=== PATIENT | male | born 1980 | race Caucasian/White ===

== ENCOUNTER 2018-04-28 11:54 | Outpatient (CLI) | payer MEDICARE, MEDICAID, SELFPAY ==
[2018-04-28 13:05] LABS: VALPROIC ACID 78.6 ug/mL (50-100)
[2018-04-28 14:26] LABS: Abs Immature Grans 0.02 k/cumm (0.0-0.09); Absolute Basophil Count 0.02 k/cumm (0.0-0.2); Absolute Eosinophil Count 0.06 k/cumm (0.0-0.7); Absolute Lymphocyte Count 2.86 k/cumm (1.2-3.4); Absolute Monocyte Count 0.84 k/cumm (0.11-0.7); Absolute Neutrophil Count 6.19 k/cumm (1.2-6.7); Basophils % 0.2; Eosinophils % 0.6; HCT 43.9 % (40.0-50.0); HGB 14.8 g/dL (13.5-17.5); Immature Grans % 0.2; Lymphocytes % 28.6; Mean Corp. HGB Concentration 33.7 g/dL (32.0-36.0); Mean Corpuscular Hemoglobin 30.7 pg (27.0-33.0); Mean Corpuscular Volume 91.1 fL (80-95); Mean Platelet Volume 11.7 fL (8.0-11.0); Monocytes % 8.4; Platelet Count 260 x1000/uL (130-400); RBC 4.82 m/cumm (4.50-6.00); RBC Distribution Width 13.3 % (11.8-14.1); White Blood Cell Count 9.99 k/cumm (4.4-10.8)
[2018-04-28 16:50] LABS: ALT 16 U/L (12-78); AST 2 U/L (15-37); Albumin 3.6 g/dL (3.4-5.0); Alkaline Phosphatase 60 U/L (46-116); Anion Gap 10.3 mmol/L (3-11); BUN 14 mg/dL (7-18); Bilirubin, Total 0.3 mg/dL (0.2-1.0); CO2 28.7 mmol/L (21.0-32.0); CREATININE 0.81 mg/dL (0.70-1.30); Chloride 105 mmol/L (98-107); Cholesterol 146 mg/dL (50-200); Glucose 94 mg/dL (70-100); HDL Cholesterol 33 mg/dL (40-60); LDL CHOLESTEROL 92 mg/dL (<100); Potassium 4.5 mmol/L (3.5-5.1); Sodium 144 mmol/L (136-145); TSH (W/Ref FT4) 2.45 uIU/mL (0.358-3.74); Triglyceride 150 mg/dL (30-150)
[2018-04-28 19:33] LABS: Hemoglobin A1C 6.4 % (4.5-6.2)
[2018-04-29 13:37] LABS: Calcium 9.5 mg/dL (8.5-10.1)
== END 2018-04-28 12:14 ==
PROVIDERS: PCP Nurse Practitioner Family; Visit Provider Nurse Practitioner Psychiatric/Mental Health
DX: F31.9 Bipolar disorder, unspecified (principal); Z51.81 Encounter for therapeutic drug level monitoring; Z79.899 Other long term (current) drug therapy
CPT/HCPCS: 36415; 80053; 80061; 83721; 80164; 83036; 84443; 85025

== ENCOUNTER 2018-10-27 10:02 | Outpatient (CLI) | payer MEDICARE, MEDICAID, SELFPAY ==
[2018-10-27 10:53] LABS: VALPROIC ACID 53.7 ug/mL (50-100)
== END 2018-10-27 10:22 ==
PROVIDERS: PCP Nurse Practitioner Family; Visit Provider Nurse Practitioner Psychiatric/Mental Health
DX: F31.9 Bipolar disorder, unspecified (principal); Z51.81 Encounter for therapeutic drug level monitoring; Z79.899 Other long term (current) drug therapy
CPT/HCPCS: 36415; 80164

== ENCOUNTER 2019-05-31 09:11 | Outpatient (CLI) | payer MEDICARE, MEDICAID, SELFPAY ==
[2019-05-31 09:50] LABS: VALPROIC ACID 63.5 ug/mL (50-100)
[2019-05-31 10:20] LABS: COMMENT (LAB VIEW ONLY) 70.89 mg/dL; Microalb ug/mg Crea 139.5 ug/mg Cr
[2019-05-31 10:47] LABS: ALT 29 U/L (16-63); Albumin 3.9 g/dL (3.4-5.0); Alkaline Phosphatase 63 U/L (46-116); Anion Gap 8.2 mmol/L (3-11); BUN 12 mg/dL (7-18); Bilirubin, Total 0.2 mg/dL (0.2-1.0); CO2 32.8 mmol/L (21.0-32.0); Calcium 9.6 mg/dL (8.5-10.1); Calculated LDL 87 mg/dL; Chloride 102 mmol/L (98-107); Cholesterol 155 mg/dL (50-200); Glucose 128 mg/dL (70-100); HDL Cholesterol 37 mg/dL (40-60); Potassium 4.9 mmol/L (3.5-5.1); Sodium 143 mmol/L (136-145); TSH (W/Ref FT4) 2.83 uIU/mL (0.36-3.74); Total Protein 7.5 g/dL (6.4-8.2); Triglyceride 157 mg/dL (30-150)
[2019-05-31 10:49] LABS: AST < 5 U/L (15-37)
[2019-06-01 14:04] LABS: HIV-1/2 Ag & Ab Screen Negative (Negative)
== END 2019-05-31 09:31 ==
PROVIDERS: PCP Nurse Practitioner Family; Visit Provider Nurse Practitioner Psychiatric/Mental Health
DX: E03.9 Hypothyroidism, unspecified (principal); E78.5 Hyperlipidemia, unspecified; E11.9 Type 2 diabetes mellitus without complications; F31.9 Bipolar disorder, unspecified; Z51.81 Encounter for therapeutic drug level monitoring; Z11.4 Encounter for screening for human immunodeficiency virus [HIV]
CPT/HCPCS: 36415; 80053; 80061; 87389; 80164; 82043; 82570; 83036; 84443

== ENCOUNTER 2020-01-28 17:59 | Emergency (ER) | payer MEDICARE, MEDICAID, SELFPAY ==
[2020-01-28 18:03] VITALS: BP 153/80; PULSE 96; RESP 16; TEMP 36.7; O2SAT 94
--- NOTE | 2020-01-28 18:19 | W.ED.GENAD ---
Discharge Plan Disposition Patient Disposition: HOME Condition: Improving Discharge Details Chief Complaint: Abd Prob Clinical Impression: Abdominal pain, Nausea Primary Care Provider: Anai Bearden ED Provider: Chey Sun Home Meds and New Rx's Prescriptions: New ondansetron 4 mg tablet,disintegrating 4 mg PO TID PRN (Reason: nausea and vomiting) Qty: 6 RF: 0 Continued albuterol sulfate [ProAir HFA] 90 mcg/actuation HFA aerosol inhaler 1 - 2 inh Inhalation .Q4-6H PRN (Reason: shortness of breath or wheezing) Qty: 1 RF: 0 cyclobenzaprine 5 mg tablet 5 - 10 mg PO TID PRN (Reason: muscle spasm) Qty: 20 RF: 0 bupropion HCl 200 MG tablet extended release 12 hr 200 mg PO DAILY RF: 0 loratadine 10 MG tablet 10 mg PO DAILY PRNQty: 30 RF: 3 albuterol sulfate 2.5 MG/3 ML solution for nebulization 2.5 mg Inhalation QID PRN RF: 0 (DME) blood-glucose meter 1 EACH misc 1 ea Miscellaneous DAILY Qty: 1 RF: 0 (DME) Blood Glucose Test 1 EACH strip 1 ea Miscellaneous DAILY Qty: 100 RF: 3 (DME) lancets 1 EACH misc 1 ea Miscellaneous DAILY Qty: 100 RF: 3 divalproex [Depakote ER] 500 mg tablet extended release 24 hr 1,500 mg PO HS RF: 0 risperidone [Risperdal] 1 mg tablet 1 mg PO BID RF: 0 levothyroxine 100 mcg tablet 100 mcg PO DAILY Qty: 90 RF: 3 atorvastatin 20 mg tablet 20 mg PO DAILY Qty: 90 RF: 3 metformin 1,000 mg tablet 1,000 mg PO BID Qty: 180 RF: 3 magnesium gluconate 27 mg magnesium (500 mg) tablet 27 mg PO QPM RF: 0 naproxen 500 mg tablet 500 mg PO BID MDD 1000 mg PRN (Reason: pain) Qty: 40 RF: 0 pantoprazole 20 mg tablet,delayed release (DR/EC) 20 mg PO DAILY Qty: 30 RF: 11 aspirin [Aspir-81] 81 mg tablet,delayed release (DR/EC) 81 mg PO DAILY Qty: 90 RF: 3 Discharge Instructions Instructions: Acute Nausea and Vomiting (ED), Abdominal Pain (ED) Additional Instructions: Drink plenty of fluids and get plenty of rest. Alternate tylenol and motrin as needed and directed for pain. Take the Zofran as needed and directed for nausea and vomiting. Follow-up with your primary care doctor in 1 week. Return to the emergency department with any worsening or new concerning symptoms. Discharge Data Discharge Physician: Chey Sun Medical Decision Making 1814 -- 39-year-old male with a history of diabetes, obesity, hypothyroidism, hyperlipidemia presents with left lower quadrant abdominal pain and nausea since yesterday. He appears nontoxic. He has left lower quadrant tenderness. Differential diagnosis includes acute diverticulitis, colitis, gastroenteritis, bowel obstruction, etc. Will place an IV, bolus IV fluids, screening labs, CT abdomen pelvis and give a dose of Toradol Zofran and reassess. 1929 --labs and imaging reviewed and unremarkable. Normal white blood cell count. CT negative for acute process. Patient reassessed and still with left lower quadrant abdominal pain. He was given a dose of IV Tylenol and surgery consulted. Dr. Dinh reviewed the CT images and does not see any acute abdominal process. Question possible abdominal wall muscle strain versus viral process. 2029 -- Patient was able to eat and drink here and feels good to go home. Prescription for Zofran given as well as tabs for home. Advised to follow up with the primary care doctor for re-evaluation. Usual and customary return precautions given prior to discharge. Medical Records Medical records reviewed: Yes I reviewed the patient's medical records. Imaging Data Radiologic Study: Radiologist's impression: CT Abdomen And Pelvis With Contrast Exam date and time: 01/28/2020 6:50 PM Age: 39 years old Clinical indication: Abdominal pain; Localized; Left lower quadrant (llq); Prior surgery; Surgery type: Appendectomy; Patient HX: Llq abd pain, nausea TECHNIQUE: Imaging protocol: Computed tomography of the abdomen and pelvis with intravenous contrast. COMPARISON: CT ABD PELVIS WITH CONTRAST 10/26/2015 7:54 AM FINDINGS: Lungs: Visualized lung bases are clear. Heart: Heart size normal. Mediastinal space: The visualized distal esophagus is normal. Liver: Normal size and contour. No mass lesions. No intrahepatic biliary ductal dilatation. Gallbladder and bile ducts: Normal. No calcified stones. No ductal dilation. Pancreas: Normal. No inflammatory changes or ductal dilation. Spleen: Normal. No splenomegaly. Adrenals: Normal. No adrenal mass. Kidneys and ureters: No acute abnormalities. No hydronephrosis or hydroureter. Numerous right-sided renal cortical cysts in medullary cysts measuring up to 3.7 cm in size, which are not significantly changed from prior exam 10/26/2015. There are 2 small foci of calcification associated with the posterior cysts wall in the lateral mid pole and lateral lower pole distribution which are unchanged. No further imaging evaluation is required. Stomach and bowel: The stomach is grossly normal. The small bowel is normal with no evidence of obstruction. No acute colonic abnormalities. Appendix: Prior appendectomy. Intraperitoneal space: No free fluid or air. Vasculature: No acute process. No abdominal aortic aneurysm. Lymph nodes: No adenopathy. Bladder: Unremarkable as visualized. Reproductive: Mildly enlarged prostate. Bones/joints: No acute osseous abnormalities. Soft tissues: Unremarkable. IMPRESSION: 1. No acute process. 2. Interval appendectomy since 10/26/2015. Otherwise no significant interval change. 3. Multiple right renal cysts are not significantly changed since 2016. No further imaging evaluation is required. 4. Additional incidental findings detailed above. Lab Data Lab results reviewed: Yes I reviewed the patient's lab results. Labs: Laboratory Tests Range/Units 01/28/20 01/28/20 18:29 18:30 WBC (4.4-10.8) k/cumm 8.37 RBC (4.50-6.00) m/cumm 4.70 Hgb (13.5-17.5) g/dL 14.2 Hct (40.0-50.0) % 42.8 MCV (80-95) fL 91.1 MCH (27.0-33.0) pg 30.2 MCHC (32.0-36.0) g/dL 33.2 RDW (11.8-14.1) % 13.4 Plt Count (130-400) x1000/uL 274 MPV (8.0-11.0) fL 10.9 Immature Gran % % 0.4 Neutrophils % 60.1 Lymphocytes % 31.7 Monocytes % 6.9 Eosinophils % 0.8 Basophils % 0.1 Absolute Neutrophils (1.2-6.7) k/cumm 5.03 Absolute Lymphocytes (1.2-3.4) k/cumm 2.65 Absolute Monocytes (0.11-0.7) k/cumm 0.58 Absolute Eosinophils (0.0-0.7) k/cumm 0.07 Absolute Basophils (0.0-0.2) k/cumm 0.01 Sodium (136-145) mmol/L 141 Potassium (3.5-5.1) mmol/L 3.5 Chloride (98-107) mmol/L 102 Carbon Dioxide (21.0-32.0) mmol/L 30.5 Anion Gap (3-11) mmol/L 8.5 BUN (7-18) mg/dL 11 Creatinine (0.70-1.30) mg/dL 0.91 Estimated GFR/1.73 m2 (mL/min/1.73m2) >= 60.00 Glucose (74-106) mg/dL 117 H Calcium (8.5-10.1) mg/dL 9.2 Total Bilirubin (0.2-1.0) mg/dL 0.3 AST (15-37) U/L 11 L ALT (16-63) U/L 41 Alkaline Phosphatase (46-116) U/L 54 Total Protein (6.4-8.2) g/dL 8.0 Albumin (3.4-5.0) g/dL 3.8 Lipase (73-393) U/L 92 HPI General Mode of arrival: ambulatory. Date/Time Provider Initiated Documentation: 01/28/20 18:19. Limitations to Documentation: no limitations. Information obtained by: patient. HPI Narrative: Patient is a 39-year-old male with a history of diabetes, GERD, hypothyroidism, hyperlipidemia and obesity presents for nausea and left lower quadrant abdominal pain since yesterday morning. He describes the pain as constant dull and intermittent sharp without radiation. States the pain is currently 7/10. He took naproxen for pain without relief. Last bowel movement yesterday and within normal limits. Denies fever, vomiting, urinary symptoms, diarrhea, recent travel or recent surgery. Patient was sent here by PCP office for further evaluation for possible diverticulitis. Related Data Home Medications Medication Instructions Recorded Confirmed bupropion HCl 200 mg PO DAILY tab 02/01/13 01/28/20 loratadine 10 mg PO DAILY PRN #30 tab 02/08/16 01/28/20 albuterol sulfate 2.5 mg INHALATION QID PRN 08/28/16 01/28/20 blood-glucose meter #1 unit 07/21/17 01/28/20 Blood Glucose Test #100 strip 11/13/17 01/28/20 lancets #100 ea 11/13/17 01/28/20 divalproex 500 mg tablet,extended 1,500 mg PO HS tab-cap 04/13/18 01/28/20 release 24 hr cyclobenzaprine 5 mg tablet 5 - 10 mg PO TID PRN #20 tab 11/12/18 01/28/20 albuterol sulfate 90 mcg/actuation 1 - 2 inh INHALATION .Q4-6H PRN #1 01/08/19 01/28/20 aerosol inhaler unit risperidone 1 mg tablet 1 mg PO BID 03/04/19 01/28/20 levothyroxine 100 mcg tablet 100 mcg PO DAILY #90 tab 03/26/19 01/28/20 atorvastatin 20 mg tablet 20 mg PO DAILY #90 tab-cap 09/06/19 01/28/20 metformin 1,000 mg tablet 1,000 mg PO BID #180 tab-cap 10/06/19 01/28/20 magnesium gluconate 27 mg 27 mg PO QPM tab 10/28/19 01/28/20 magnesium (500 mg) tablet naproxen 500 mg tablet 500 mg PO BID PRN #40 tab-cap MDD 11/04/19 01/28/20 1000 mg pantoprazole 20 mg tablet,delayed 20 mg PO DAILY #30 tab-cap 11/29/19 01/28/20 release aspirin 81 mg tablet,delayed 81 mg PO DAILY #90 tab-cap 12/29/19 01/28/20 release ondansetron 4 mg PO TID PRN #6 tab 01/28/20 Previous Rx's Medication Instructions Recorded blood-glucose meter #1 unit 07/21/17 Blood Glucose Test #100 strip 11/13/17 lancets #100 ea 11/13/17 cyclobenzaprine 5 mg tablet 5 - 10 mg PO TID PRN #20 tab 11/12/18 albuterol sulfate 90 mcg/actuation 1 - 2 inh INHALATION .Q4-6H PRN #1 01/08/19 aerosol inhaler unit levothyroxine 100 mcg tablet 100 mcg PO DAILY #90 tab 03/26/19 atorvastatin 20 mg tablet 20 mg PO DAILY #90 tab-cap 09/06/19 metformin 1,000 mg tablet 1,000 mg PO BID #180 tab-cap 10/06/19 naproxen 500 mg tablet 500 mg PO BID PRN #40 tab-cap MDD 11/04/19 1000 mg pantoprazole 20 mg tablet,delayed 20 mg PO DAILY #30 tab-cap 11/29/19 release aspirin 81 mg tablet,delayed 81 mg PO DAILY #90 tab-cap 12/29/19 release ondansetron 4 mg PO TID PRN #6 tab 01/28/20 Allergies Allergy/AdvReac Type Severity Reaction Status Date / Time nickel AdvReac Unknown rash Verified 01/28/20 18:08 dust Allergy Unknown breathing Uncoded 01/28/20 18:08 problems seafood AdvReac Unknown gagging Uncoded 01/28/20 18:08 General Stated Complaint: Abd Prob KAUSHIK: 3 Review of Systems All systems reviewed & are unremarkable except as noted in HPI and below Constitutional Constitutional: Reports as per HPI, Denies chills and Denies fever(s) Eyes Eyes: Denies blurry vision ENT Ears, Nose, Mouth, and Throat: Denies dizziness, Denies sore throat and Denies throat swelling Cardiovascular Cardiovascular: Denies chest pain and Denies dyspnea Respiratory Respiratory: Denies cough and Denies dyspnea Gastrointestinal Gastrointestinal: Reports abdominal pain, Denies diarrhea, Reports nausea and Denies vomiting Genitourinary Genitourinary: Denies hematuria and Denies dysuria Musculoskeletal Musculoskeletal: Denies back pain and Denies numbness Integumentary/Breasts Skin/Breast: Denies lesions and Denies rash Neurologic Neurologic: Denies dizziness, Denies localized weakness and Denies numbness Allergic/Immunologic Allergic/Immunologic: Denies throat swelling [facility] Social History Smoking/Tobacco Use Status: Former Tobacco Use Quit Date: 10/29/19 Tobacco: How many years used: 15 Quit status: considering quitting Alcohol Intake: current Alcohol Intake frequency: a few times a month Alcohol type: beer and wine Drug use: Never Substance use type: does not use Adopted: Yes Housing: apartment Number of Children: 0 Current gender identity: male What type of physical activity do you participate in: walking Duration: < 15 minutes/day Frequency: 1-2 times per week Water heater temp set <120 deg: Yes Working smoke detector in home: Yes Fire extinguisher in home: Yes Carbon monox detector in home: Yes Do you feel safe at home: No (bullied-working with HS) Do you feel safe in your relationship?: Yes Exam Const General: cooperative, healthy appearing and no acute distress HENMT Head: normal to inspection Face and sinus: normal facial exam Eyes General: appearance normal, both eyes and all related structures EOM: EOM intact bilaterally Neck Neck: normal visual inspection and No submandibular swelling Lymphatic: no lymphadenopathy noted Chest Chest: normal inspection of the chest and no tenderness Resp Effort & Inspection: normal respiratory effort and able to speak in complete sentences Auscultation: clear to auscultation bilaterally Cardio Rate: regular rate Rhythm: regular rhythm GI Inspection: normal to inspection and obesity Palpation: soft, not firm, not rigid and tender in the LLQ Auscultation: normal bowel sounds Male General Exam: Yes normal external exam Scrotum: scrotum normal Skin General skin exam: no rashes or lesions noted Neuro General: patient alert, patient awake and patient oriented x3 Cognition: normal cognition Speech: speech normal Motor: muscle tone normal throughout Sensory Exam: no sensory deficits noted Extrem General: normal to inspection, full ROM, capillary refill normal, no calf tenderness bilaterally and no edema Psych Appearance: grossly normal Mental Status: mental status grossly normal Speech and Movement: speech and movement normal Affect: normal affect Course Vital Signs Vital signs: Vital Signs Temperature 98.1 F 01/28/20 18:03 Pulse 96 H 01/28/20 18:03 Respiratory Rate 16 01/28/20 18:03 Blood Pressure 153/80 H 01/28/20 18:03 Pulse Oximetry 94 L 01/28/20 18:03 Temperature 98.1 F 01/28/20 18:03 Temperature Source Skin 01/28/20 18:03 Pulse 96 H 01/28/20 18:03 Respiratory Rate 16 01/28/20 18:03 Respiratory Effort 01/28/20 18:08 Blood Pressure 153/80 H 01/28/20 18:03 Pulse Oximetry 94 L 01/28/20 18:03 Oxygen Delivery Method Room Air 01/28/20 18:03 Oxygen Flow Rate 0 01/28/20 18:03 Pain Level 7 01/28/20 18:03 Comment 01/28/20 18:03
--- NOTE | 2020-01-28 18:30 | DI.CT_ITS ---
EXAM: CT ABDOMEN PELVIS W CLINICAL HISTORY: LLQ abd pain, nausea TECHNIQUE: Imaging Protocol: Axial computed tomography images with coronal and sagittal reformatted images were created and reviewed CONTRAST MATERIAL: Intravenous: Omnipaque 350 Contrast volume:100 mL Oral: No COMPARISON: CT ABD PELVIS WITH CONTRAST from 10/26/2015 FINDINGS: ABDOMEN: Lung Bases: Normal where visualized. Liver: Normal density. No measurable mass. Portal, Superior Mesenteric, and Splenic Veins: Unremarkable. Gallbladder and Biliary Tract: No radiodense calculus or dilation. Pancreas: Normal density, no abnormal calcifications or inflammatory process. Spleen: Normal. Adrenals: No masses seen. Kidneys: Normal size, contour and axis. There are unchanged calcifications seen in the right kidney. No obstructive uropathy. Multiple stable right renal cysts. Abdominal Aorta: Abdominal portion non-dilated. Bowel: No obstruction or bowel wall thickening. Status post appendectomy. Peritoneal Cavity: No ascites, collection or mesenteric inflammatory response. Lymph Nodes: Within normal limits. Bones: Unremarkable. Soft Tissues: Unremarkable. PELVIS: Bladder: Symmetric distention, no gross wall thickening. Reproductive Organs: Unremarkable as visualized. Lymph Nodes: Within normal limits. Bones: Within normal limits. IMPRESSION: 1. No acute abdominal or pelvic process. 2. Stable multiple right renal cysts. RADIATION DOSE DELIVERED: Total DLP DATA REPOSITORY: All CT scans at this facility are submitted to the National Radiology Data Registry (NRDR) Dose Index Registry (DIR) with the [employer] (A[employer]). RADIATION OPTIMIZATION: All CT scans at this facility use at least one of these dose optimization te chniques: automated exposure control; mA and/or kV adjustment per patient size (includes targeted exa ms where dose is matched to clinical indication); or iterative reconstruction.
[2020-01-28] MEDS: Ondansetron 4 MG/2 ML VIAL IVP (18:37)
[2020-01-28] MEDS: Ketorolac 30 MG/ML VIAL IVP (18:37)
[2020-01-28] MEDS: Omnipaque 350 MG/ML 100 ML BTL IJ (18:39)
[2020-01-28] MEDS: Normal Saline - Diluent 50 ML VIAL IV (18:40)
[2020-01-28 18:43] LABS: Abs Immature Grans 0.03 k/cumm (0.0-0.09); Absolute Basophil Count 0.01 k/cumm (0.0-0.2); Absolute Eosinophil Count 0.07 k/cumm (0.0-0.7); Absolute Lymphocyte Count 2.65 k/cumm (1.2-3.4); Absolute Monocyte Count 0.58 k/cumm (0.11-0.7); Absolute Neutrophil Count 5.03 k/cumm (1.2-6.7); Basophils % 0.1; Eosinophils % 0.8; HCT 42.8 % (40.0-50.0); HGB 14.2 g/dL (13.5-17.5); Immature Grans % 0.4 %; Lymphocytes % 31.7; Mean Corp. HGB Concentration 33.2 g/dL (32.0-36.0); Mean Corpuscular Hemoglobin 30.2 pg (27.0-33.0); Mean Corpuscular Volume 91.1 fL (80-95); Mean Platelet Volume 10.9 fL (8.0-11.0); Monocytes % 6.9; Neutrophils % 60.1; Platelet Count 274 x1000/uL (130-400); RBC Distribution Width 13.4 % (11.8-14.1); White Blood Cell Count 8.37 k/cumm (4.4-10.8)
[2020-01-28] MEDS: Normal Saline Flush 10 ML SYR IVP (18:49)
[2020-01-28 18:53] LABS: ALT 41 U/L (16-63); AST 11 U/L (15-37); Albumin 3.8 g/dL (3.4-5.0); Alkaline Phosphatase 54 U/L (46-116); Anion Gap 8.5 mmol/L (3-11); Bilirubin, Total 0.3 mg/dL (0.2-1.0); CO2 30.5 mmol/L (21.0-32.0); CREATININE 0.91 mg/dL (0.70-1.30); Calcium 9.2 mg/dL (8.5-10.1); Chloride 102 mmol/L (98-107); Glucose 117 mg/dL (74-106); Lipase 92 U/L (73-393); Potassium 3.5 mmol/L (3.5-5.1); Sodium 141 mmol/L (136-145)
[2020-01-28 19:01] LABS: BUN 11 mg/dL (7-18)
--- NOTE | 2020-01-28 19:11 | DI.VRAD_ITS ---
PROCEDURE INFORMATION: Exam: CT Abdomen And Pelvis With Contrast Exam date and time: 01/28/2020 6:50 PM Age: 39 years old Clinical indication: Abdominal pain; Localized; Left lower quadrant (llq); Prior surgery; Surgery type: Appendectomy; Patient HX: Llq abd pain, nausea TECHNIQUE: Imaging protocol: Computed tomography of the abdomen and pelvis with intravenous contrast. COMPARISON: CT ABD PELVIS WITH CONTRAST 10/26/2015 7:54 AM FINDINGS: Lungs: Visualized lung bases are clear. Heart: Heart size normal. Mediastinal space: The visualized distal esophagus is normal. Liver: Normal size and contour. No mass lesions. No intrahepatic biliary ductal dilatation. Gallbladder and bile ducts: Normal. No calcified stones. No ductal dilation. Pancreas: Normal. No inflammatory changes or ductal dilation. Spleen: Normal. No splenomegaly. Adrenals: Normal. No adrenal mass. Kidneys and ureters: No acute abnormalities. No hydronephrosis or hydroureter. Numerous right-sided renal cortical cysts in medullary cysts measuring up to 3.7 cm in size, which are not significantly changed from prior exam 10/26/2015. There are 2 small foci of calcification associated with the posterior cysts wall in the lateral mid pole and lateral lower pole distribution which are unchanged. No further imaging evaluation is required. Stomach and bowel: The stomach is grossly normal. The small bowel is normal with no evidence of obstruction. No acute colonic abnormalities. Appendix: Prior appendectomy. Intraperitoneal space: No free fluid or air. Vasculature: No acute process. No abdominal aortic aneurysm. Lymph nodes: No adenopathy. Bladder: Unremarkable as visualized. Reproductive: Mildly enlarged prostate. Bones/joints: No acute osseous abnormalities. Soft tissues: Unremarkable. IMPRESSION: 1. No acute process. 2. Interval appendectomy since 10/26/2015. Otherwise no significant interval change. 3. Multiple right renal cysts are not significantly changed since 2016. No further imaging evaluation is required. 4. Additional incidental findings detailed above. Dictated and Authenticated by: Yohan Lujan MD. Ordering:TANVI Guerrier MD
[2020-01-28 19:12] VITALS: BP 149/95; PULSE 91; RESP 14; TEMP 36.8; O2SAT 94
[2020-01-28] MEDS: ACETAMINOPHEN 1,000 MG/100 ML BTL 400 MG IVPB (19:39)
--- NOTE | 2020-01-28 20:18 | NUR.NOTE ---
pt tolerating gingerale Nursing Note:
[2020-01-28 20:31] VITALS: BP 151/92; O2SAT 94
[2020-01-28] MEDS: Ondansetron O.D.T. 4 MG TABEF, 3 TABS/BTL PO (20:33)
== END 2020-01-28 20:35 | disposition home or self-care (01) ==
LOC: ER 20:01
PROVIDERS: Emergency Provider Physician Assistant; PCP Nurse Practitioner Family
DX: R11.2 Nausea with vomiting, unspecified (principal); R10.32 Left lower quadrant pain; E11.9 Type 2 diabetes mellitus without complications; Z79.84 Long term (current) use of oral hypoglycemic drugs
CPT/HCPCS: 36415; 80053; 83690; 96365; 96375; 99285; 74177; 85025; 99284; J0131; J1885; J2405; J3490

== ENCOUNTER 2020-09-28 23:51 | Emergency (ER) | payer MEDICARE, MEDICAID, SELFPAY ==
[2020-09-28 23:54] VITALS: BP 184/100; PULSE 110; RESP 16; TEMP 36.5; O2SAT 98
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
--- NOTE | 2020-09-29 00:13 | DI.RAD_ITS ---
EXAM: XR KNEE RT 2V AP,LAT CLINICAL HISTORY: knee pain. TECHNIQUE: 2D digital imaging was performed. COMPARISON: No exams were available for comparison FINDINGS: BONES: No acute fracture is present. No bony destructive lesion is seen. JOINTS: The knee is normally aligned. No joint effusion is seen. SOFT TISSUE: Normal. IMPRESSION: Unremarkable radiographs of the right knee. DATA REPOSITORY: RADIATION DOSE DELIVERED:
[2020-09-29] MEDS: Acetaminophen 500 MG TAB PO (00:24)
--- NOTE | 2020-09-29 00:32 | DI.VRAD_ITS ---
PROCEDURE INFORMATION: Exam: XR Right Knee Exam date and time: 09/29/2020 12:14 AM Age: 40 years old Clinical indication: Pain; Knee; Right TECHNIQUE: Imaging protocol: XR Right knee. Views: 3 views. COMPARISON: US RIGHT EXTREMITY ULTRASOUND ([id number]) 11/20/2015 11:08 AM FINDINGS: Bones/joints: No joint effusion. No fracture or dislocation. Normal osseous mineralization. Knee joint spacing and alignment are anatomic. Soft tissues: Normal. IMPRESSION: Negative exam. Dictated and Authenticated by: Ramón Shipley MD. Ordering:TERELL Tobias MD
[2020-09-29 00:38] VITALS: BP 137/89; PULSE 101; RESP 18; O2SAT 95
== END 2020-09-29 00:43 | disposition home or self-care (01) ==
LOC: ER 09-29 00:33
PROVIDERS: Emergency Provider Registered Nurse Emergency; PCP Nurse Practitioner Family
DX: M25.561 Pain in right knee (principal); M25.562 Pain in left knee
CPT/HCPCS: 99283; 73560

== ENCOUNTER 2020-11-01 15:48 | Outpatient (CLI) | payer MEDICARE, MEDICAID, SELFPAY ==
--- NOTE | 2020-11-01 15:00 | DI.RAD_ITS ---
EXAM: XR KNEE LT 3V AP,LAT,NHI CLINICAL HISTORY: left knee pain. TECHNIQUE: 2D digital imaging was performed. COMPARISON: CR,XR XR KNEE RT 2V AP,LAT from 09/29/2020 FINDINGS: There is no evidence of fracture or obvious joint effusion. No degenerative changes evident. No pat ellar displacement. On the AP view there is slight irregularity in the proximal 3rd of fibula noted. This may be prior h ealed fracture site. IMPRESSION: DATA REPOSITORY: RADIATION DOSE DELIVERED:
--- NOTE | 2020-11-01 15:00 | DI.RAD_ITS ---
EXAM: XR KNEE RT 1V CLINICAL HISTORY: right knee pain. TECHNIQUE: 2D digital imaging was performed. COMPARISON: CR XR KNEE LT 3V AP,LAT,NHI from 11/01/2020 FINDINGS: Merchant's-sunrise view both knees reveals no narrowing of the retropatellar space in either knee. A lso no patellar displacement. No osteochondral defects evident. No osteophytes evident. IMPRESSION: No significant radiograph findings on this merchant's view of the knees. DATA REPOSITORY: RADIATION DOSE DELIVERED:
== END 2020-11-01 15:49 | disposition home or self-care (01) ==
LOC: DIORS 15:48
PROVIDERS: PCP Nurse Practitioner Family; Referring Provider Student in an Organized Health Care Education/Training Program; Visit Provider Student in an Organized Health Care Education/Training Program
DX: M22.41 Chondromalacia patellae, right knee (principal); M22.42 Chondromalacia patellae, left knee; M76.51 Patellar tendinitis, right knee; M76.52 Patellar tendinitis, left knee; M25.561 Pain in right knee; M25.562 Pain in left knee
CPT/HCPCS: 73562; 99203; 99213; 73560

== ENCOUNTER → 2021-01-17 10:40 | Outpatient (BNVA) | payer MEDICARE, MEDICAID, SELFPAY | PROVIDERS: PCP Nurse Practitioner Family; Referring Provider Nurse Practitioner Family; Visit Provider Student in an Organized Health Care Education/Training Program | DX: M76.51 Patellar tendinitis, right knee (principal); M76.52 Patellar tendinitis, left knee; M22.41 Chondromalacia patellae, right knee; M22.42 Chondromalacia patellae, left knee | CPT/HCPCS: 99213 ==

== ENCOUNTER 2021-02-20 03:36 | Outpatient (CLI) | payer MEDICARE, MEDICAID, SELFPAY ==
[2021-02-20 14:25] LABS: COMMENT (LAB VIEW ONLY) 115.95 mg/dL; Microalb ug/mg Crea 65.9 ug/mg Cr
[2021-02-20 14:29] LABS: ALT 26 U/L (16-63); AST 5 U/L (15-37); Albumin 3.6 g/dL (3.4-5.0); Alkaline Phosphatase 60 U/L (46-116); Anion Gap 10.6 mmol/L (3-11); BUN 4 mg/dL (7-18); Bilirubin, Total 0.2 mg/dL (0.2-1.0); CO2 29.4 mmol/L (21.0-32.0); CREATININE 0.9 mg/dL (0.70-1.30); Calcium 9.3 mg/dL (8.5-10.1); Calculated LDL 83 mg/dL (<100); Chloride 105 mmol/L (98-107); Cholesterol 163 mg/dL (<200); Glucose 112 mg/dL (74-106); HDL Cholesterol 35 mg/dL (40-60); Potassium 4.3 mmol/L (3.5-5.1); Sodium 145 mmol/L (136-145); TSH (W/Ref FT4) 2.77 uIU/mL (0.36-3.74); Total Protein 7.1 g/dL (6.4-8.2); Triglyceride 228 mg/dL (<150)
[2021-02-21 10:06] LABS: Hepatitis C Ab w Rflx HCV PCR Negative (Negative)
== END 2021-02-20 03:37 | disposition home or self-care (01) ==
PROVIDERS: PCP Nurse Practitioner Family; Visit Provider Nurse Practitioner Family
DX: E11.9 Type 2 diabetes mellitus without complications (principal); E78.5 Hyperlipidemia, unspecified; Z11.59 Encounter for screening for other viral diseases
CPT/HCPCS: 36415; 80053; 80061; 86803; 82043; 82570; 84443

== ENCOUNTER 2021-04-03 11:35 | Outpatient (REF) | payer MEDICARE, MEDICAID, SELFPAY ==
[2021-04-04 16:53] LABS: Chlamydia Result Negative (Negative); GC Result Negative (Negative)
== END 2021-04-03 11:36 | disposition home or self-care (01) ==
LOC: LBN 11:35
PROVIDERS: Family Medicine; PCP Nurse Practitioner Family; Visit Provider Nurse Practitioner Family
DX: R30.0 Dysuria (principal)
CPT/HCPCS: 87491; 87591

== ENCOUNTER 2021-04-17 04:00 | Outpatient (CLI) | payer MEDICARE, MEDICAID, SELFPAY ==
[2021-04-17 09:53] LABS: Abs Immature Grans 0.03 10^3/uL (0.0-0.06); Absolute Basophil Count 0.03 10^3/uL (0.0-0.2); Absolute Eosinophil Count 0.12 10^3/uL (0.0-0.7); Absolute Monocyte Count 0.66 10^3/uL (0.1-0.8); Absolute Neutrophil Count 3.98 10^3/uL (1.2-6.7); Basophils % 0.4; Eosinophils % 1.5; HCT 45.5 % (40.0-50.0); HGB 14.7 g/dL (13.5-17.5); Immature Grans % 0.4; Lymphocytes % 40.6; MCH 29.8 pg (27.0-33.0); MCHC 32.3 % (32.0-36.0); MCV 92.3 fL (80-95); MPV 10.7 fL (8.0-11.0); Monocytes % 8.1; Nucleated RBC 0 %; Platelet Count 297 10^3/uL (130-400); RBC 4.93 10^6/uL (4.36-5.78); RDW 12.3 % (11.8-14.1); RDW-SD 42.2 fL; WBC 8.12 10^3/uL (4.4-10.8)
[2021-04-17 10:03] LABS: VALPROIC ACID 69.8 ug/mL
[2021-04-17 10:48] LABS: ALT 24 U/L (16-63); AST < 5 U/L (15-37); Albumin 3.6 g/dL (3.4-5.0); Alkaline Phosphatase 65 U/L (46-116); Anion Gap 9.1 mmol/L (3-11); BUN 11 mg/dL (7-18); Bilirubin, Total 0.3 mg/dL (0.2-1.0); CO2 31.9 mmol/L (21.0-32.0); CREATININE 0.8 mg/dL (0.70-1.30); Calcium 9.6 mg/dL (8.5-10.1); Calculated LDL 76 mg/dL (<100); Chloride 102 mmol/L (98-107); Cholesterol 169 mg/dL (<200); Glucose 148 mg/dL (74-106); HDL Cholesterol 35 mg/dL (40-60); Potassium 4.4 mmol/L (3.5-5.1); Sodium 143 mmol/L (136-145); TSH (W/Ref FT4) 3.91 uIU/mL (0.36-3.74); Total Protein 7.3 g/dL (6.4-8.2); Triglyceride 293 mg/dL (<150)
[2021-04-17 12:16] LABS: FREE T4 1.02 ng/dL (0.76-1.46)
== END 2021-04-17 04:01 | disposition home or self-care (01) ==
LOC: LBO 04:00
PROVIDERS: PCP Nurse Practitioner Family; Visit Provider Nurse Practitioner Psychiatric/Mental Health
DX: F31.9 Bipolar disorder, unspecified (principal); Z79.899 Other long term (current) drug therapy; Z51.81 Encounter for therapeutic drug level monitoring
CPT/HCPCS: 36415; 80053; 80061; 80164; 84439; 84443; 85025

== ENCOUNTER → 2021-06-11 12:58 | Outpatient (BNVA) | payer MEDICARE, MEDICAID, SELFPAY | PROVIDERS: PCP Nurse Practitioner Family; Referring Provider Nurse Practitioner Family; Visit Provider Nurse Practitioner Gerontology | DX: R39.81 Functional urinary incontinence (principal); E11.9 Type 2 diabetes mellitus without complications | CPT/HCPCS: 99214 ==

== ENCOUNTER 2021-10-09 21:54 | Emergency (ER) | payer MEDICARE, MEDICAID, SELFPAY ==
[2021-10-09 21:57] VITALS: BP 142/88; PULSE 125; RESP 18; TEMP 35.8; O2SAT 98
--- NOTE | 2021-10-09 22:08 | DI.CT_ITS ---
Exam(s) CT ABDOMEN PELVIS W EXAM: CT ABDOMEN PELVIS W CLINICAL HISTORY: sudden generalized abdominal pain TECHNIQUE: COMPARISON: CT CT ABDOMEN PELVIS W from 01/28/2020 FINDINGS: CT examination of the abdomen and pelvis was performed with bolus infusion of 100 cc of Omnipaque 350 . Images obtained through the lung bases are unremarkable. The liver appears normal with no evidence of a focal mass. Spleen is unremarkable in appearance.. Gallbladder and bile ducts are unremarkable. Pancreas is unremarkable in appearance. Adrenals appear normal bilaterally. There are multiple right renal cysts and nonobstructing right renal calculus. Left kidney is unremar kable in appearance.. Urinary bladder is nearly empty and is difficult to evaluate period. There is no evidence of abdominal or pelvic adenopathy. Abdominal aorta is of normal diameter and no abnormality is seen involving major visceral branches.. Prior appendectomy noted. No evidence diverticulitis or bowel obstruction. Mild nonspecific proxima l colonic fluid-filled distention, this may represent an ileus. No significant abdominal wall hernia seen. Impression: No evidence of acute intra-abdominal process.. RADIATION DOSE DELIVERED: 1,499.19mGy.cm Total DLP 1,499.19mGy.cm Total DLP !Error CTDIvol DATA REPOSITORY: All CT scans at this facility are submitted to the National Radiology Data Registry (NRDR) Dose Index Registry (DIR) with the [employer] (ACR). RADIATION OPTIMIZATION: All CT scans at this facility use at least one of these dose optimization te chniques: automated exposure control; mA and/or kV adjustment per patient size (includes targeted exa ms where dose is matched to clinical indication); or iterative reconstruction.
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
[2021-10-09 22:21] LABS: Abs Immature Grans 0.03 10^3/uL (0.0-0.06); Absolute Basophil Count 0.03 10^3/uL (0.0-0.2); Absolute Lymphocyte Count 3.44 10^3/uL (1.2-3.4); Absolute Monocyte Count 0.91 10^3/uL (0.1-0.8); Absolute Neutrophil Count 4.97 10^3/uL (1.2-6.7); BE (Venous) 4 mmol/L (-2-3); Basophils % 0.3; Eosinophils % 1.1; HCO3 (Venous) 28 mmol/L (23-28); HCT 47.2 % (40.0-50.0); HGB 15.7 g/dL (13.5-17.5); Immature Grans % 0.3; Lymphocytes % 36.3; MCH 30.3 pg (27.0-33.0); MCHC 33.3 % (32.0-36.0); MCV 90.9 fL (80-95); MPV 12.1 fL (8.0-11.0); Monocytes % 9.6; Neutrophils % 52.4; Nucleated RBC 0 %; O2 Sat (Venous) 91 %; RBC 5.19 10^6/uL (4.36-5.78); RDW 12.7 % (11.8-14.1); TCO2 (Venous) 24 mmol/L (24-29); WBC 9.48 10^3/uL (4.4-10.8); pCO2 (Venous) 43 mmHg (41-51); pH (Venous) 7.43 (7.31-7.41); pO2 (Venous) 57 mmHg
[2021-10-09] MEDS: Omnipaque 350 MG/ML 100 ML BTL IV (22:21)
[2021-10-09] MEDS: Normal Saline Flush 10 ML SYR IVP (22:22)
[2021-10-09] MEDS: Normal Saline 1,000 ML 1000 ML IV (22:23)
[2021-10-09 22:25] LABS: Lactate 2.4 mmol/L (0.6-1.4)
[2021-10-09 22:30] LABS: Bilirubin Negative (Negative); Blood Negative (Negative); Clarity Clear (Clear); Glucose Negative (Negative); Ketones Trace mg/dL (Negative); Leukocyte Esterase Negative (Negative); Nitrite Negative (Negative); Specific Gravity 1.025 (1.005-1.025); Urobilinogen 0.2 EU/dL (Up TO 0.2)
[2021-10-09 22:40] LABS: Bilirubin, Total 0.3 mg/dL (0.2-1.0); Diff Comment PLT Morph Reviewed
[2021-10-09 22:43] LABS: Bilirubin, Direct < 0.1 mg/dL (0.0-0.2)
[2021-10-09 22:48] LABS: Source Nasal/Nares
[2021-10-09] MEDS: Ketorolac 15 MG/ML VIAL IVP (22:49)
[2021-10-09 22:50] LABS: ALT 20 U/L (16-63); AST 5 U/L (15-37); Albumin 3.9 g/dL (3.4-5.0); Alkaline Phosphatase 62 U/L (46-116); Anion Gap 8.8 mmol/L (3-11); BUN 22 mg/dL (7-18); Bilirubin, Total 0.3 mg/dL (0.2-1.0); CO2 26.2 mmol/L (21.0-32.0); CREATININE 0.9 mg/dL (0.70-1.30); Chloride 103 mmol/L (98-107); Glucose 157 mg/dL (74-106); Lipase 123 U/L (73-393); Magnesium 1.5 mg/dL (1.8-2.4); Potassium 4.3 mmol/L (3.5-5.1); Sodium 138 mmol/L (136-145); TSH (W/Ref FT4) 6.53 uIU/mL (0.36-3.74); Total Protein 7.9 g/dL (6.4-8.2)
[2021-10-09 23:08] LABS: FREE T4 0.93 ng/dL (0.76-1.46)
--- NOTE | 2021-10-09 23:17 | DI.VRAD_ITS ---
PROCEDURE INFORMATION: Exam: CT Abdomen And Pelvis With Contrast Exam date and time: 10/09/2021 10:21 PM Age: 41 years old Clinical indication: Prior surgery; Surgery date: 6+ months; Surgery type: Appendectomy; Patient HX: Sudden generalized abdominal pain TECHNIQUE: Imaging protocol: Computed tomography of the abdomen and pelvis with contrast. Radiation optimization: All CT scans at this facility use at least one of these dose optimization techniques: automated exposure control; mA and/or kV adjustment per patient size (includes targeted exams where dose is matched to clinical indication); or iterative reconstruction. Contrast material: OMNIPAQUE 350; Contrast volume: 100 ml; Contrast route: INTRAVENOUS (IV); COMPARISON: CT ABDOMEN PELVIS W 01/28/2020 6:42 PM FINDINGS: Liver: Hepatic steatosis. Gallbladder and bile ducts: Normal. No calcified stones. No ductal dilation. Pancreas: Normal. No ductal dilation. Spleen: Normal. No splenomegaly. Adrenal glands: Normal. No mass. Kidneys and ureters: Multiple cysts in the the right kidney, some of these are too small to be characterized, unchanged. Punctate nonobstructive calcification in the right kidney. Stomach and bowel: There are foci of diverticulosis in the sigmoid colon without acute inflammation. Stomach is mildly distended with food contents. There is fluid noted in the nondilated proximal large bowel. No significant mucosal thickening pericolonic stranding to suggest colitis. Appendix: Appendicectomy. Intraperitoneal space: Unremarkable. No free air. No significant fluid collection. Vasculature: Unremarkable. No abdominal aortic aneurysm. Lymph nodes: Unremarkable. No enlarged lymph nodes. Urinary bladder: Unremarkable as visualized. Reproductive: There is mild right hydrocele. Bones/joints: Unremarkable. No acute fracture. Soft tissues: Unremarkable. IMPRESSION: No acute abnormality. Dictated and Authenticated by: Sai Walker MD. Ordering:JOSE CARLOS Castro MD
[2021-10-09 23:29] LABS: COVID-19 PCR Negative (Negative)
[2021-10-09 23:33] VITALS: BP 126/74; PULSE 96; RESP 18; O2SAT 97
[2021-10-09] MEDS: Mylanta Suspension 30 ML CUP PO (23:35)
[2021-10-10 00:09] LABS: VALPROIC ACID 51.3 ug/mL
== END 2021-10-09 23:29 | disposition home or self-care (01) ==
PROVIDERS: Emergency Provider Emergency Medicine; PCP Nurse Practitioner Family
DX: R10.9 Unspecified abdominal pain (principal); E03.9 Hypothyroidism, unspecified
CPT/HCPCS: 80053; 82805; 83690; 87635; 96361; 96374; 99284; 99285; 74177; 80164; 81003; 82247; 82248; 83605; 83735; 84439; 84443; 85025; J1885; J3490

== ENCOUNTER → 2021-11-08 14:20 | Outpatient (BNVA) | payer MEDICARE, MEDICAID, SELFPAY | PROVIDERS: PCP Nurse Practitioner Family; Referring Provider Nurse Practitioner Family; Visit Provider Nurse Practitioner Gerontology | DX: N47.1 Phimosis (principal) | CPT/HCPCS: 99214 ==

== ENCOUNTER 2021-11-16 02:09 | Outpatient (CLI) | payer MEDICARE, MEDICAID, SELFPAY ==
[2021-11-16 10:22] LABS: Source Nasal/Nares
[2021-11-16 13:14] LABS: COVID-19 PCR Negative (Negative)
== END 2021-11-16 02:10 | disposition home or self-care (01) ==
LOC: LBO 02:10
PROVIDERS: Urology; PCP Nurse Practitioner Family; Visit Provider Nurse Practitioner Gerontology
DX: Z20.822 Contact with and (suspected) exposure to COVID-19 (principal); Z01.818 Encounter for other preprocedural examination
CPT/HCPCS: 87635; U0005

== ENCOUNTER 2021-11-19 08:59 | Day surgery (SDC) | payer MEDICARE, MEDICAID, SELFPAY ==
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
[2021-11-19 09:17] VITALS: BP 142/93; PULSE 100; RESP 17; TEMP 36.6; O2SAT 95
[2021-11-19] MEDS: Lactated Ringers 1,000 ML 80 ML IV (09:41)
[2021-11-19 10:49] VITALS: BMI 38.9
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
[2021-11-19] MEDS: ceFAZolin 2 GM/50 ML BAG IVPB (12:24)
[2021-11-19] MEDS: Bupivacaine 0.5% Pres-Free 30 ML VIAL (12:55)
--- NOTE | 2021-11-19 13:08 | PDOC.DSDIS_ITS ---
Discharge Plan Disposition Patient Disposition: HOME Condition: Stable Discharge Details Reason For Visit: circumcision Attending Provider: Rian Roldan Primary Care Provider: Anai Bearden Home Meds and New Rx's Prescriptions: No Action albuterol sulfate [ProAir HFA] 90 mcg/actuation HFA aerosol inhaler 1 - 2 inh Inhalation .Q4-6H PRN (Reason: shortness of breath or wheezing) Qty: 1 0RF acetaminophen 500 mg tablet 500 mg PO Q6H PRN0RF Metamucil (sugar) Powder 1 tbsp PO DAILY Qty: 368 0RF Rx Instructions: mix into at least 8 oz of water or juice before administering naproxen 500 mg tablet 500 mg PO BID MDD 1000 mg PRN (Reason: pain) Qty: 40 0RF Rx Instructions: 40 pills is a 90 day supply bupropion HCl 200 MG tablet extended release 12 hr 200 mg PO DAILY 0RF Rx Instructions: DEPRESSION, [facility] loratadine 10 MG tablet 10 mg PO DAILY PRNQty: 30 3RF Rx Instructions: needs to be available PRN DX: SEASONAL ALLERGIES albuterol sulfate 2.5 MG/3 ML solution for nebulization 2.5 mg Inhalation QID PRN 0RF Rx Instructions: [place] [place] blood-glucose meter 1 EACH misc 1 ea Miscellaneous DAILY Qty: 1 0RF Rx Instructions: Dx: E11.9 to maintain HbA1c less than 7%. No insulin. Please dispense brand covered by insurance. [place] [place] Blood Glucose Test 1 EACH strip 1 ea Miscellaneous DAILY Qty: 100 3RF Rx Instructions: Dx: E11.9 to maintain HbA1c less than 7%. No insulin. PLEASE DISPENSE BRAND COVERED BY INSURANCE [place] [place] lancets 1 EACH misc 1 ea Miscellaneous DAILY Qty: 100 3RF Rx Instructions: Dx: E11.9 to maintain HbA1c less than 7%. No insulin. PLEASE DISPENSE BRAND COVERED BY INSURANCE divalproex [Depakote ER] 500 mg tablet extended release 24 hr 1,500 mg PO HS 0RF Label Comments: Kate Gomez APRN [facility] Rx Instructions: 11/19/17-3 OF 500 MG with1-250mg for total of 1750mg hs-[facility] risperidone [Risperdal] 1 mg tablet 1 mg PO BID 0RF Rx Instructions: note dated 02/25/19 Favian Desai APRN, [facility] magnesium gluconate 27 mg magnesium (500 mg) tablet 27 mg PO QPM 0RF Rx Instructions: Sometimes takes BID if needed imiquimod 5 % cream in packet 1 applic topical .3xW Qty: 24 1RF Rx Instructions: Maximum duration of therapy is 6 weeks levothyroxine 100 mcg tablet 100 mcg PO DAILY Qty: 90 3RF Rx Instructions: Administer in the morning on an empty stomach, at least 30-60 minutes before food atorvastatin 20 mg tablet 20 mg PO DAILY Qty: 90 3RF metformin 1,000 mg tablet 1,000 mg PO BID Qty: 180 3RF aspirin 81 mg tablet,delayed release (DR/EC) 81 mg PO DAILY Qty: 90 3RF pantoprazole 20 mg tablet,delayed release (DR/EC) 20 mg PO QAM Qty: 90 3RF Rx Instructions: Take 20 mg once daily in the morning at least 30-60 minutes before first meal Discharge Instructions Additional Instructions: may use tylenol for pasin - if no relief may use tramadol (prescription sent) Activity:: no straining/lifting for 1 week Remove Dressings/Wound Care:: 24 hours Shower/Bathe:: 24 hours Diet:: As Tolerated Discharge Orders Discharge Orders: Discharge Order (Routine); Ordered 11/19/21 Ordered By: Rian Roldan DS: Diagnosis Discharge Diagnosis (1) Phimosis: Status: Acute (2) H/O balanitis: Status: Acute
[2021-11-19 13:12] VITALS: BP 125/81; PULSE 97; RESP 17; TEMP 36.5; O2SAT 93
--- NOTE | 2021-11-19 13:17 | W.PM.OP ---
Date of service: 11/19/21 Time of Service: 13:17 Operative Note Operative Note DATE OF PROCEDURE: 11/19/21 PRE-OP DIAGNOSIS: Phimosis POST-OP DIAGNOSIS: same PROCEDURE: Circumcision SURGEON: Rian Roldan ANESTHESIA TYPE: General:No Airway Refer to Anesthesia Record ESTIMATED BLOOD LOSS: 25 PATHOLOGY: none sent COMPLICATIONS: None Patient was transported to: same day Patient's condition: stable Implants: none Indications: This is a 41-year-old gentleman who is uncircumcised. He has been having more more difficulty retracting the foreskin and has had recurrent episodes of balanitis. He presents for circumcision Procedure Description: The patient was brought to the operating room and 11/19/2021. He was given a dose of preoperative antibiotics. After successful induction of general anesthesia, he was placed in the supine position. His genitalia was prepped and draped. A penile ring block and a dorsal penile nerve block was performed using quarter percent Marcaine without epinephrine. A circumferential incision on the outer aspect of the foreskin was then performed. The incision was made at approximately the level of the coronal sulcus. A second incision was made on the inner aspect of the foreskin approximately 2 cm below the coronal sulcus. The 2 incisions were interconnected and the redundant foreskin was excised using cautery. No abnormalities were seen on the foreskin, so it was elected not to send the tissue for pathological examination. Any bleeding points that were encountered were controlled using the Bovie. The skin edges were then reapproximated using simple interrupted 4-0 chromic sutures. At the completion of the procedure, hemostasis appeared excellent. A Vaseline gauze dressing was applied to the incision site. The patient tolerated this procedure with no complications.
[2021-11-19 13:43] VITALS: BP 131/87; PULSE 76; RESP 18; TEMP 36.6; O2SAT 95
--- NOTE | 2021-11-19 13:46 | W.ANESPOSTOP ---
Postoperative Evaluation Date, Time and Location Date Performed: 11/19/21 Time Performed: 13:46 Patient Location: Day Surgery Unit Vital Signs Most Recent Imported Vital Signs: Most Recent Vital Signs Temp Pulse Resp BP Pulse Ox 36.5 C 97 H 17 125/81 93 11/19/21 13:12 11/19/21 13:12 11/19/21 13:12 11/19/21 13:12 11/19/21 13:12 Pain Score Most Recent Pain Score: Most Recent Pain Score Pain Level 0 11/19/21 13:12 Assessment Mental Status: Awake (Alert & Oriented to Patient Baseline) Airway and Respiratory Function: Patent airway with normal (patient baseline) respiratory exam Cardiovascular Function: Hemodynamically Stable Hydration Status: Adequately Hydrated Nausea & Vomiting: No Nausea or Vomiting Pain: Pt. Denies Any Pain Peripheral Nerve Block: Patient did not receive a nerve block
== END 2021-11-19 14:05 | disposition home or self-care (01) ==
PROVIDERS: PCP Nurse Practitioner Family; Visit Provider Urology
PROC: (CPT 54161; principal; 2021-11-19 11:15)
DX: N47.1 Phimosis (principal); E11.65 Type 2 diabetes mellitus with hyperglycemia; F89 Unspecified disorder of psychological development; Z79.84 Long term (current) use of oral hypoglycemic drugs
CPT/HCPCS: 54161; J0690; J1100; J1885; J2405

== ENCOUNTER → 2021-11-26 09:54 | Outpatient (BNVA) | payer MEDICARE, MEDICAID, SELFPAY | PROVIDERS: PCP Nurse Practitioner Family; Referring Provider Nurse Practitioner Family; Visit Provider Nurse Practitioner Gerontology | DX: Z87.438 Personal history of other diseases of male genital organs (principal) ==

== ENCOUNTER → 2021-12-31 09:41 | Outpatient (BNVA) | payer MEDICARE, MEDICAID, SELFPAY | PROVIDERS: PCP Nurse Practitioner Family; Referring Provider Nurse Practitioner Family; Visit Provider Nurse Practitioner Gerontology | DX: Z87.438 Personal history of other diseases of male genital organs (principal) | CPT/HCPCS: 99213 ==

== ENCOUNTER 2022-03-15 02:12 | Outpatient (CLI) | payer MEDICARE, MEDICAID, SELFPAY ==
[2022-03-15 08:20] LABS: Abs Immature Grans 0.03 10^3/uL (0.0-0.06); Absolute Basophil Count 0.02 10^3/uL (0.0-0.2); Absolute Eosinophil Count 0.08 10^3/uL (0.0-0.7); Absolute Lymphocyte Count 3.17 10^3/uL (1.2-3.4); Absolute Monocyte Count 0.51 10^3/uL (0.1-0.8); Basophils % 0.3; Eosinophils % 1.1; HCT 40.4 % (40.0-50.0); HGB 13.6 g/dL (13.5-17.5); Immature Grans % 0.4; MCH 30.1 pg (27.0-33.0); MCHC 33.7 % (32.0-36.0); MCV 89 fL (80-95); MPV 10.6 fL (8.0-11.0); Monocytes % 7.1; Neutrophils % 47.1; Platelet Count 278 10^3/uL (130-400); RBC 4.52 10^6/uL (4.36-5.78); RDW 11.9 % (11.8-14.1); RDW-SD 38.8 fL; WBC 7.21 10^3/uL (4.4-10.8)
[2022-03-15 08:25] LABS: Bilirubin Negative (Negative); Blood Negative (Negative); Clarity Clear (Clear); Glucose 500 mg/dL (Negative); Ketones Negative (Negative); Leukocyte Esterase Negative (Negative); Nitrite Negative (Negative); Urobilinogen 0.2 EU/dL (Up TO 0.2)
[2022-03-15 09:13] LABS: Hemoglobin A1C 6.7 % (<5.7)
[2022-03-15 09:38] LABS: ALT 21 U/L (16-63); AST 5 U/L (15-37); Albumin 3.5 g/dL (3.4-5.0); Alkaline Phosphatase 62 U/L (46-116); BUN 5 mg/dL (7-18); Bilirubin, Total 0.2 mg/dL (0.2-1.0); CREATININE 0.9 mg/dL (0.70-1.30); Calcium 9.1 mg/dL (8.5-10.1); Calculated LDL 68 mg/dL (<100); Chloride 102 mmol/L (98-107); Cholesterol 140 mg/dL (<200); Estimated GFR 110.04 (mL/min/1.73m2); Glucose 225 mg/dL (74-106); HDL Cholesterol 34 mg/dL (40-60); Potassium 3.7 mmol/L (3.5-5.1); Sodium 141 mmol/L (136-145); TSH (W/Ref FT4) 2.95 uIU/mL (0.36-3.74); Total Protein 7.2 g/dL (6.4-8.2); Triglyceride 191 mg/dL (<150)
== END 2022-03-15 02:13 | disposition home or self-care (01) ==
LOC: LBO 02:13
PROVIDERS: PCP Nurse Practitioner Family; Visit Provider Nurse Practitioner Family
DX: E11.29 Type 2 diabetes mellitus with other diabetic kidney complication; E78.5 Hyperlipidemia, unspecified; E03.9 Hypothyroidism, unspecified; Z51.81 Encounter for therapeutic drug level monitoring; R80.9 Proteinuria, unspecified
CPT/HCPCS: 36415; 80053; 80061; 81003; 83036; 84443; 85025

== ENCOUNTER 2022-03-22 14:33 | Outpatient (REF) | payer MEDICARE, MEDICAID, SELFPAY ==
[2022-03-23 22:38] LABS: Albumin ug/mg Crea 65 (<30); Creatinine, Ur 45.9 mg/dL (See Note)
== END 2022-03-22 14:34 | disposition home or self-care (01) ==
LOC: LBN 14:33
PROVIDERS: PCP Nurse Practitioner Family; Visit Provider Nurse Practitioner Family
DX: E11.9 Type 2 diabetes mellitus without complications (principal)
CPT/HCPCS: 82043; 82570

== ENCOUNTER 2022-04-02 13:59 | Outpatient (CLI) | payer MEDICARE, MEDICAID, SELFPAY ==
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
== END 2022-04-02 14:00 | disposition home or self-care (01) ==
LOC: DIORS 14:00
PROVIDERS: PCP Nurse Practitioner Family; Referring Provider Nurse Practitioner Family; Visit Provider Student in an Organized Health Care Education/Training Program
DX: M84.362A Stress fracture, left tibia, initial encounter for fracture; X58.XXXA Exposure to other specified factors, initial encounter
CPT/HCPCS: 99214; 73590

== ENCOUNTER 2022-09-01 20:00 | Emergency (ER) | payer MEDICARE, MEDICAID, SELFPAY ==
[2022-09-01 19:58] VITALS: BP 148/94; PULSE 90; RESP 16; TEMP 36.8; O2SAT 95
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
== END 2022-09-01 22:10 | disposition home or self-care (01) ==
LOC: ER 22:04
PROVIDERS: Emergency Provider Physician Assistant; PCP Nurse Practitioner Family
DX: S09.90XA Unspecified injury of head, initial encounter (principal); G89.11 Acute pain due to trauma; M25.511 Pain in right shoulder; M25.531 Pain in right wrist; E11.65 Type 2 diabetes mellitus with hyperglycemia; J45.909 Unspecified asthma, uncomplicated; Z79.51 Long term (current) use of inhaled steroids; Z79.82 Long term (current) use of aspirin; Z86.16 Personal history of COVID-19; Z79.84 Long term (current) use of oral hypoglycemic drugs; V49.9XXA Car occupant (driver) (passenger) injured in unspecified traffic accident, initial encounter
CPT/HCPCS: 99284; 70450; 71046; 72125; 73030; 73110; 99282

== ENCOUNTER 2023-01-21 01:00 | Outpatient (CLI) | payer MEDICARE, MEDICAID, SELFPAY ==
--- NOTE | 2023-01-21 07:45 | DI.US_ITS ---
Exam(s) US SOFT TISSUE EXTREMITY EXAM: US SOFT TISSUE EXTREMITY CLINICAL HISTORY: eval lump back of R knee,R22.41. TECHNIQUE: Ultrasound was performed using standard protocol. Area of concern scanned posterior righ t distal thigh where there is a lump. COMPARISON: US RIGHT EXTREMITY ULTRASOUND {[id number]} from 11/20/2015 FINDINGS: Corresponding to the area of palpable concern there is a well-defined solid nodule measuring 1.6 x 1. 0 cm. This does not have the appearance of a typical benign lipoma. Mild surrounding vascularity. IMPRESSION: There is a well-defined solid nodule measuring 16 x 10 mm corresponding to the palpable lump. Biopsy is recommended. DATA REPOSITORY:
== END 2023-01-21 01:20 ==
LOC: DI 01:00
PROVIDERS: PCP Nurse Practitioner Family; Visit Provider Nurse Practitioner Family
DX: R22.41 Localized swelling, mass and lump, right lower limb (principal)
CPT/HCPCS: 76881

== ENCOUNTER → 2023-02-07 07:51 | Outpatient (BNVA) | payer MEDICARE, MEDICAID, SELFPAY | PROVIDERS: PCP Nurse Practitioner Family; Referring Provider Nurse Practitioner Family; Visit Provider Surgery | DX: R22.41 Localized swelling, mass and lump, right lower limb (principal) | CPT/HCPCS: 99202; 99214 ==

== ENCOUNTER 2023-02-19 06:05 | Day surgery (SDC) | payer MEDICARE, MEDICAID, SELFPAY ==
[2023-02-19 06:15] VITALS: BP 178/97; PULSE 120; RESP 20; TEMP 36.2; O2SAT 95
--- NOTE | 2023-02-19 06:48 | PGE_ITS ---
Date of Service Date of service: 02/19/23 Time of Service: 07:15 Assessment and Plan Assessment and plan (1) Subcutaneous nodule: Status: Acute Assessment and plan: I saw Nick in same-day surgery prior to his surgery. I marked the site. We reviewed the surgery itself as well as the risks, benefits and complications again. The patient did not have any questions. His guardian did not have any questions. The guardian understood the risks and benefits and complications and wished to proceed. Subjective Subjective Interval history since last seen: From Office note: Nick is a pleasant 42-year-old gentleman who is here with his guardian who is his dad.? He has a small nodule on the posterior right thigh.? Ultrasound was done which I reviewed today.? It shows a well- circumscribed mass with some vascularity around it.? Does not look like a lipom a.? Biopsy was recommended by the radiologist.? I reviewed with the patient and his guardian the procedure.? I offered to do it here in the office under local but the patient would like sedation.? We will set him up to have this done in the operating room or procedure room with some sedation.? I explained the risks and benefits of the procedure.? Complications include but are not limited to bleeding, infection, wound dehiscence, need for further surgery, and adverse reaction to the medications.? The guardian and the patient both stated they understood the procedure and the risks.? I have asked the guardian to be with the patient the day of surgery so he can sign the anesthesia record as well as the consent for surgery. I saw Nick in [facility] prior to his surgery. I spoke to him and his guardian. He is doing well and has had no new health issues. Exam Resp Effort & Inspection: normal respiratory effort Auscultation: clear to auscultation bilaterally Cardio Rate: regular rate Rhythm: regular rhythm Skin Other: Right posterior thigh about 1 and half to 2 inches above his knee there is a well-circumscribed hard nodule measuring about 1 cm.? It is nontender to palpation.? There is no erythema or edema. Objective Last Vital Signs Temp 97.2 F L 02/19/23 06:15 Pulse 120 H 02/19/23 06:15 Resp 20 02/19/23 06:15 BP 178/97 H 02/19/23 06:15 Pulse Ox 95 02/19/23 06:15 Time Spent with Patient Time Spent with Patient: <25 minutes Time was spent: counseling the patient
[2023-02-19] MEDS: Celecoxib 200 MG CAP PO (06:50)
[2023-02-19] MEDS: Acetaminophen 500 MG TAB 1000 MG PO (06:50)
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
--- NOTE | 2023-02-19 06:53 | W.PM.DSUDISC ---
Date of service: 02/19/23 Time of Service: 06:53 Discharge Plan Disposition Patient Disposition: Home Condition: Stable Discharge Details Reason For Visit: posterior thigh nodule Attending Provider: Patti Gustafson Primary Care Provider: Anai Bearden Home Meds and New Rx's Prescriptions: Continued albuterol sulfate [ProAir HFA] 90 mcg/actuation HFA aerosol inhaler 1 - 2 inh Inhalation .Q4-6H PRN (Reason: shortness of breath or wheezing) Qty: 1 0RF Metamucil (sugar) Powder 1 tbsp PO DAILY Qty: 368 0RF Rx Instructions: mix into at least 8 oz of water or juice before administering naproxen 500 mg tablet 500 mg PO BID MDD 1000 mg PRN (Reason: pain) Qty: 40 0RF Rx Instructions: 40 pills is a 90 day supply Jardiance 10 mg tablet 10 mg PO DAILY AM Qty: 90 3RF Rx Instructions: Administer once daily in the morning, with or without food losartan 25 mg tablet 25 mg PO DAILY Qty: 90 3RF acetaminophen 500 mg tablet 1,000 mg PO TID MDD 3000 mg PRN (Reason: pain) Qty: 360 3RF bupropion HCl 200 MG tablet extended release 12 hr 200 mg PO DAILY Rx Instructions: DEPRESSION, NKHS loratadine 10 MG tablet 10 mg PO DAILY PRNQty: 30 Rx Instructions: needs to be available PRN DX: SEASONAL ALLERGIES albuterol sulfate 2.5 MG/3 ML solution for nebulization 2.5 mg Inhalation QID PRN Rx Instructions: Dr Rowley ([facility]) blood-glucose meter 1 EACH misc 1 ea Miscellaneous DAILY Qty: 1 0RF Rx Instructions: Dx: E11.9 to maintain HbA1c less than 7%. No insulin. Please dispense brand covered by insurance. ([facility] [place]) Blood Glucose Test 1 EACH strip 1 ea Miscellaneous DAILY Qty: 100 3RF Rx Instructions: Dx: E11.9 to maintain HbA1c less than 7%. No insulin. PLEASE DISPENSE BRAND COVERED BY INSURANCE ([facility] [place]) lancets 1 EACH misc 1 ea Miscellaneous DAILY Qty: 100 3RF Rx Instructions: Dx: E11.9 to maintain HbA1c less than 7%. No insulin. PLEASE DISPENSE BRAND COVERED BY INSURANCE magnesium gluconate 27 mg magnesium (500 mg) tablet 27 mg PO QPM Rx Instructions: Sometimes takes BID if needed imiquimod 5 % cream in packet 1 applic topical .3xW Qty: 24 1RF Rx Instructions: Maximum duration of therapy is 6 weeks levothyroxine 100 mcg tablet 100 mcg PO DAILY Qty: 90 3RF Rx Instructions: Administer in the morning on an empty stomach, at least 30-60 minutes before food atorvastatin 20 mg tablet 20 mg PO DAILY Qty: 90 3RF risperidone [Risperdal] 1 mg tablet 2 mg PO QHS Rx Instructions: note dated 02/25/19 Favian Desai APRN, [facility] metformin 1,000 mg tablet 1,000 mg PO BID Qty: 180 3RF aspirin 81 mg tablet,delayed release (DR/EC) 81 mg PO DAILY Qty: 90 3RF pantoprazole 20 mg tablet,delayed release (DR/EC) 20 mg PO QAM Qty: 90 3RF Rx Instructions: Take 20 mg once daily in the morning at least 30-60 minutes before first meal divalproex [Depakote ER] 500 mg tablet extended release 24 hr 1,000 mg PO HS Patient Comments: Kate Gomez APRN [facility] Discharge Instructions Instructions: Care For Your Stitches (DC) Additional Instructions: Activity at Home after surgery: 1. As tolerated Diet, Nutrition, & wound healin. Avoid alcohol until after you are recovered from your surgery 2. Make sure to eat plenty of lean protein (meat, fish, eggs, cottage cheese, beans) 3. Eat a variety of fruits and vegetables. Eat plenty of high fiber foods to avoid constipation. 4. Drink plenty of liquids to stay hydrated and avoid constipation Pain Medications: 1. Tylenol 650mg every 6 hours as needed and Ibuprofen 600 mg every 6 hours as needed. You may alternate between the 2 medications every 3 hours 2. If a narcotic has been prescribed take as directed only for breakthrough pain For Constipation: 1. Take Milk of Magnesia or MiraLax as needed for constipation Other: 1. You may shower daily. Do not scrub the incisions 2. Do not soak the incisions for 1 week 3. You may alternate ice and heat as needed for pain and swelling Wound Care: 1. Keep the incisions clean and dry Please call our office if you develop: 1. Fevers >101.5 2. Nausea or Vomiting 3. Worsening pain 4. Redness and thick discharge from the wounds If after hours please call the Hospital at and ask to speak to the on-call surgeon Referrals: Patti Gustafson MD [ [facility] STAFF PHYSICIAN] - 03/03/23 8:45 am Activity:: Activity as Tolerated Remove Dressings/Wound Care:: Do Not Remove Shower/Bathe:: 24 hours Diet:: As Tolerated Discharge Orders Discharge Orders: Discharge Order (Routine); Ordered 02/19/23 Ordered By: Patti Gustafson DS: Diagnosis Discharge Diagnosis (1) Subcutaneous nodule: Status: Acute Asessment and Plan: The patient is doing well post-op from their excision of posterior thigh nodule surgery.? They are having no nausea or vomiting. They are tolerating liquids and a snack. The pt is not having any chest pain or SOB.? Their pain is adequately controlled. They have been able to urinate.? ?HEENT:? no eye pain/drainage/redness/swelling. Mild sore throat ?Cardio- NSR, no chest pain, BP stable- see VS record ?Pulm: no sob or productive cough. No hemoptysis ?Incision- dressing is c/d/i w/ no excessive bleeding or drainage ?I discussed with the patient the findings at the time of surgery and the patient?s progress. ?We reviewed expectations at home; what the patient could expect for recovery time, and in the post-operative period.? We discussed the importance of walking to avoid blood clots and pneumonia.? We discussed and reviewed the patient's post-operative wound care and dressing needs.?? We reviewed their step-bird pain management plan, Rx called to the pharmacy of their choice.? We reviewed activity and limitations-see discharge instructions. We reviewed warning signs, and when to seek medical attention- see d/c instructions.?? Patient was given a postoperative follow-up appointment. Patient verbalized understanding of their postoperative instructions, how do to take care of themselves and their incision, and the pain management plan. Please see discharge instructions.?
--- NOTE | 2023-02-19 06:57 | W.PM.OP ---
Date of service: 02/19/23 Time of Service: 07:50 Operative Note Operative Note DATE OF PROCEDURE: 02/19/23 PRE-OP DIAGNOSIS: right posterior thigh mass POST-OP DIAGNOSIS: other (Sebaceous cyst) PROCEDURE: Excision of sebaceous cyst SURGEON: Patti Gustafson ANESTHESIA TYPE: Local By Surgeon and General:No Airway Refer to Anesthesia Record ESTIMATED BLOOD LOSS: 15 PATHOLOGY: none sent COMPLICATIONS: None Patient was transported to: same day Patient's condition: stable Indications: .Nick is a pleasant 42-year-old gentleman who is here with his guardian who is his dad.? He has a small nodule on the posterior right thigh.? Ultrasound was done which I reviewed today.? It shows a well-circumscribed mass with some vascularity around it.? Does not look like a lipoma.? Biopsy was recommended by the radiologist.? I reviewed with the patient and his guardian the procedure.? I offered to do it here in the office under local but the patient would like sedation.? We will set him up to have this done in the operating room or procedure room with some sedation.? I explained the risks and benefits of the procedure.? Complications include but are not limited to bleeding, infection, wound dehiscence, need for further surgery, and adverse reaction to the medications.? The guardian and the patient both stated they understood the procedure and the risks.? I have asked the guardian to be with the patient the day of surgery so he can sign the anesthesia record as well as the consent for surgery. Findings: Sebaceous cyst measuring 2.5 x 1 cm Procedure Description: After informed consent was obtained the patient was taken to the operating room and placed in a left decubitous position. The skin was then prepped and draped in a sterile surgical fashion. The area was infiltrated with 0.5% Lidocaine with epi. An incision was made over the palpable lesion with a 15 blade. Dissection was done around the lesion using both blunt dissection with a hemostat and sharp dissection with metzenbaum scissors. Once the lesion was completely dissected it was removed from the operating table. It was a sebacous cyst measuring 2.5 x 1 cm. The wound was irrigated with some saline. Bleeding was stopped using cautery as well as suture ligation. Once the wound was clean and dry the subcutaneous tissue was reapproximated with 3-0 Vicryl interrupted sutures. The dermis was closed with a running 4-0 Monocryl suture. Skin was cleaned and dried and skin affix was applied. The patient tolerated the procedure well and there were no immediate complications. Needle, sponge and instrument counts were correct at the end of the case.
[2023-02-19] MEDS: Lactated Ringers 1,000 ML 80 ML IV (06:59)
[2023-02-19 07:14] VITALS: BMI 39.7
[2023-02-19] MEDS: ceFAZolin 2 GM/50 ML BAG IVPB (07:22)
[2023-02-19] MEDS: Bupivacaine 0.5% Pres-Free W/EPI 30 ML VIAL (07:38)
[2023-02-19 07:46] VITALS: BP 112/71; PULSE 104; RESP 18; TEMP 36.5; O2SAT 92
[2023-02-19 08:13] VITALS: BP 137/89; PULSE 110; RESP 18; TEMP 36.7; O2SAT 94
--- NOTE | 2023-02-19 08:24 | W.ANESPOSTOP ---
Postoperative Evaluation Date, Time and Location Date Performed: 02/19/23 Time Performed: 08:24 Patient Location: Day Surgery Unit Vital Signs Most Recent Imported Vital Signs: Most Recent Vital Signs Temp Pulse Resp BP Pulse Ox 36.5 C 104 H 18 112/71 92 02/19/23 07:46 02/19/23 07:46 02/19/23 07:46 02/19/23 07:46 02/19/23 07:46 Pain Score Most Recent Pain Score: Most Recent Pain Score Pain Level 0 02/19/23 07:46 Assessment Mental Status: Awake (Alert & Oriented to Patient Baseline) Airway and Respiratory Function: Patent airway with normal (patient baseline) respiratory exam Cardiovascular Function: Hemodynamically Stable Hydration Status: Adequately Hydrated Nausea & Vomiting: No Nausea or Vomiting Pain: Pt. Denies Any Pain Peripheral Nerve Block: Patient did not receive a nerve block
== END 2023-02-19 08:25 | disposition home or self-care (01) ==
PROVIDERS: PCP Nurse Practitioner Family; Visit Provider Surgery
PROC: (CPT 11403; principal; 2023-02-19 07:30)
DX: L72.3 Sebaceous cyst (principal)
CPT/HCPCS: 11403; 12031; J0690; J1100; J2405

== ENCOUNTER → 2023-03-03 08:36 | Outpatient (BNVA) | payer MEDICARE, MEDICAID, SELFPAY | PROVIDERS: PCP Nurse Practitioner Family; Referring Provider Nurse Practitioner Family; Visit Provider Surgery | DX: Z48.817 Encounter for surgical aftercare following surgery on the skin and subcutaneous tissue (principal) ==

== ENCOUNTER 2023-05-13 02:39 | Outpatient (CLI) | payer MEDICARE, MEDICAID, SELFPAY ==
[2023-05-13 09:21] LABS: HCT 47.3 % (40.0-50.0); HGB 15.6 g/dL (13.5-17.5)
[2023-05-13 09:50] LABS: COMMENT (LAB VIEW ONLY) 121.99 mg/dL
[2023-05-13 10:01] LABS: ALT 24 U/L (16-63); AST 9 U/L (15-37); Albumin 4.3 g/dL (3.4-5.0); Alkaline Phosphatase 65 U/L (46-116); Anion Gap 11.8 mmol/L (3-11); BUN 8 mg/dL (7-18); Bilirubin, Total 0.4 mg/dL (0.2-1.0); CO2 28.2 mmol/L (21.0-32.0); CREATININE 0.9 mg/dL (0.70-1.30); Calcium 9.6 mg/dL (8.5-10.1); Calculated LDL 85 mg/dL (<100); Chloride 104 mmol/L (98-107); Cholesterol 140 mg/dL (<200); Estimated GFR 109.36 (mL/min/1.73m2); Glucose 123 mg/dL (74-106); HDL Cholesterol 38 mg/dL (40-60); Sodium 144 mmol/L (136-145); TSH (W/Ref FT4) 2.52 uIU/mL (0.36-3.74); Total Protein 7.9 g/dL (6.4-8.2); Triglyceride 86 mg/dL (<150)
[2023-05-13 10:38] LABS: Vitamin B12 586 pg/mL (193-986)
== END 2023-05-13 02:40 | disposition home or self-care (01) ==
LOC: LBO 02:39
PROVIDERS: Podiatrist; PCP Nurse Practitioner Adult Health; Visit Provider Nurse Practitioner Family
DX: E11.65 Type 2 diabetes mellitus with hyperglycemia (principal); E03.9 Hypothyroidism, unspecified; E78.5 Hyperlipidemia, unspecified; R79.89 Other specified abnormal findings of blood chemistry; Z79.899 Other long term (current) drug therapy
CPT/HCPCS: 36415; 80053; 80061; 82043; 82570; 82607; 84443; 85014; 85018

== ENCOUNTER 2023-05-18 15:06 | Inpatient (IN) | payer MEDICARE, MEDICAID, SELFPAY ==
[2023-05-18] VITALS (37 sets, daily range): BP systolic 96–152; BP diastolic 57–109; PULSE 110–145; RESP 13–38; TEMP 36.8–38.4; O2SAT 88–98
--- NOTE | 2023-05-18 15:30 | DI.RAD_ITS ---
Exam(s) XR CHEST 2V PA LATERAL EXAM: XR CHEST 2V PA LATERAL CLINICAL HISTORY: sepsis, hypoxia TECHNIQUE: 2D digital imaging was performed of the chest. Three images were obtained. PA and later al views were obtained. COMPARISON: CR,XR XR CHEST 2V PA LATERAL from 09/01/2022 FINDINGS: MEDIASTINUM: Normal. HEART: Normal. PULMONARY VASCULATURE: Normal. LUNGS: No focal consolidation. PLEURAL SPACE: No pleural effusion or pneumothorax. BONE:Within normal limits for the patient's age. OTHER FINDINGS:Normal. IMPRESSION: No acute pulmonary findings. DATA REPOSITORY: RADIATION DOSE DELIVERED:
[2023-05-18] MEDS: Normal Saline 1,000 ML 1000 ML IV ×2 (15:41→15:58)
--- NOTE | 2023-05-18 15:45 | RT.EKG_ITS ---
APPROVED REPORT Exam: Resting ECG Reason for Exam: tachycardia Patient Location: E HR:122 bpm ECG Measurements Heart Rate 122 AXIS SD 149 P 45 QRSd 100 QRS 55 QT 314 T 4 QTc 448 Conclusion Sinus tachycardia...rate> [address] intervals. No [address] segment or T wave abnormalities to suggest occlusive NC
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
[2023-05-18 15:54] LABS: BE (Venous) 5 mmol/L (-2-3); HCO3 (Venous) 30 mmol/L (23-28); O2 Sat (Venous) 90 %; TCO2 (Venous) 26 mmol/L (24-29); pCO2 (Venous) 48 mmHg (41-51); pO2 (Venous) 57 mmHg
[2023-05-18] MEDS: PIPERACILLIN/TAZO 4.5 GM in Normal Saline 100 ML IVPB (15:56)
[2023-05-18 15:57] LABS: Lactate 2.6 mmol/L (0.6-1.4)
[2023-05-18 16:00] LABS: Abs Immature Grans 0.05 10^3/uL (0.0-0.06); Absolute Basophil Count 0.03 10^3/uL (0.0-0.2); Absolute Lymphocyte Count 1.45 10^3/uL (1.2-3.4); Basophils % 0.2; Eosinophils % 0.7; HCT 45.3 % (40.0-50.0); HGB 14.9 g/dL (13.5-17.5); Immature Grans % 0.4; Lymphocytes % 10.7; MCH 29.2 pg (27.0-33.0); MCHC 32.9 % (32.0-36.0); MCV 89 fL (80-95); MPV 10.8 fL (8.0-11.0); Monocytes % 5.8; Neutrophils % 82.2; Platelet Count 231 10^3/uL (130-400); RDW 12.7 % (11.8-14.1); RDW-SD 41.8 fL; WBC 13.53 10^3/uL (4.4-10.8)
[2023-05-18 16:01] LABS: Absolute Eosinophil Count 0.09 10^3/uL (0.0-0.7); Absolute Monocyte Count 0.78 10^3/uL (0.1-0.8); Absolute Neutrophil Count 11.12 10^3/uL (1.2-6.7)
[2023-05-18 16:19] LABS: ALT 19 U/L (16-63); AST 5 U/L (15-37); Albumin 3.9 g/dL (3.4-5.0); Alkaline Phosphatase 67 U/L (46-116); Anion Gap 10.2 mmol/L (3-11); BUN 6 mg/dL (7-18); Bilirubin, Total 0.4 mg/dL (0.2-1.0); CO2 28.8 mmol/L (21.0-32.0); CREATININE 0.9 mg/dL (0.70-1.30); Calcium 9.8 mg/dL (8.5-10.1); Chloride 102 mmol/L (98-107); Estimated GFR 109.36 (mL/min/1.73m2); Glucose 170 mg/dL (74-106); Sodium 141 mmol/L (136-145); Total Protein 7.8 g/dL (6.4-8.2)
[2023-05-18 16:20] LABS: COVID-19 PCR Negative (Negative); Influenza A PCR Negative (Negative); Influenza B PCR Negative (Negative); RSV PCR Negative (Negative)
[2023-05-18 16:22] LABS: Source Nasopharynx
[2023-05-18 16:31] LABS: Procalcitonin < 0.1 ng/mL
[2023-05-18] MEDS: Albuterol/Ipratropium 3 ML UPD VIAL UPD ×3 (17:00→19:00)
[2023-05-18] MEDS: LINEZOLID 600 MG/300 ML BAG 300 MG IVPB (17:29)
--- NOTE | 2023-05-18 18:15 | DI.VRAD_ITS ---
PROCEDURE INFORMATION: Exam: XR Chest Exam date and time: 05/18/2023 17:56 Age: 42 years old Clinical indication: Other: Sepsis, hypoxia TECHNIQUE: Imaging protocol: Radiologic exam of the chest. Views: 2 views. COMPARISON: CR XR CHEST 2V PA LATERAL 09/01/2022 20:57 FINDINGS: Lungs: No consolidation. Minor central interstitial and vascular crowding Pleural spaces: No pleural effusion. No pneumothorax. Heart/Mediastinum: No cardiomegaly. Bones/joints: No acute fracture. IMPRESSION: No acute cardiopulmonary pathology. Dictated and Authenticated by: Jennifer Valdivia MD. Ordering:IVETTE Delarosa MD
[2023-05-18] MEDS: ACETAMINOPHEN 1,000 MG/100 ML BTL 400 MG IVPB (18:22)
--- NOTE | 2023-05-18 19:00 | DI.CT_ITS ---
Exam(s) CT ABDOMEN PELVIS W EXAM: CT ABDOMEN PELVIS W CLINICAL HISTORY: RLQ abd tenderness TECHNIQUE: Imaging Protocol: Axial computed tomography images with coronal and sagittal reformatted images were created and reviewed CONTRAST MATERIAL: Intravenous: Omnipaque 350 contrast volume:100 mL Oral: No COMPARISON: No exams were available for comparison FINDINGS: The examination is limited due to patient motion artifact. ABDOMEN: Lung Bases: There infiltrates seen in the inferior aspect of the right middle lobe and the lower lobe s bilaterally. Liver: Normal density. No measurable mass. Portal, Superior Mesenteric, and Splenic Veins: Unremarkable. Gallbladder and Biliary Tract: No radiodense calculus or dilation. Pancreas: Normal density, no abnormal calcifications or inflammatory process. Spleen: Normal. Adrenals: No masses seen. Kidneys: Normal size, contour and axis. No radiodense stones or obstructive uropathy. There are bilat eral renal cysts, right greater than left. No follow-up is recommended. Abdominal Aorta: Abdominal portion non-dilated. Mild atherosclerosis. Bowel: No obstruction or bowel wall thickening. The patient appears to be status post appendectomy. Peritoneal Cavity: No ascites, collection or mesenteric inflammatory response. No free air. Lymph Nodes: Within normal limits. Bones: Within normal limits for the patient's age. Soft Tissues: Gynecomastia. There is a small fat containing right inguinal hernia. PELVIS: Bladder: Symmetric distention, no gross wall thickening. Reproductive Organs: Unremarkable as visualized. Lymph Nodes: Within normal limits. Bones: Within normal limits for the patient's age. IMPRESSION: 1. Bilateral basilar infiltrates suspicious for pneumonia. 2. No acute abdominal pelvic process. 3. Incidental finding seen in the abdomen and pelvis as described above. RADIATION DOSE DELIVERED: Total DLP DATA REPOSITORY: All CT scans at this facility are submitted to the National Radiology Data Registry (NRDR) Dose Index Registry (DIR) with the [employer] (A[employer]). RADIATION OPTIMIZATION: All CT scans at this facility use at least one of these dose optimization te chniques: automated exposure control; mA and/or kV adjustment per patient size (includes targeted exa ms where dose is matched to clinical indication); or iterative reconstruction.
[2023-05-18 19:02] LABS: Lactate 2.4 mmol/L (0.6-1.4)
[2023-05-18] MEDS: Dexamethasone 10 MG/ML VIAL 12 MG IVP (19:08)
[2023-05-18 19:33] LABS: D-Dimer 238 ng/mlFEU (<500)
[2023-05-18 19:45] LABS: Bilirubin Negative (Negative); Blood Negative (Negative); Clarity Clear (Clear); Glucose 500 mg/dL (Negative); Ketones Trace mg/dL (Negative); Leukocyte Esterase Negative (Negative); Nitrite Negative (Negative); Urobilinogen 0.2 mg/dL (Up to 0.2); pH 6.5 (5-8)
[2023-05-18] MEDS: Omnipaque 350 MG/ML 100 ML BTL IJ (19:58)
[2023-05-18] MEDS: Normal Saline - Diluent 50 ML VIAL IJ (19:59)
[2023-05-18] MEDS: Normal Saline Flush 10 ML SYR IVP (20:00)
--- NOTE | 2023-05-18 20:27 | DI.VRAD_ITS ---
PROCEDURE INFORMATION: Exam: CT Abdomen And Pelvis With Contrast Exam date and time: 05/18/2023 20:07 Age: 42 years old Clinical indication: Abdominal pain; Localized; Right lower quadrant (rlq); Prior surgery; Surgery date: 6+ months; Surgery type: Appendectomy; Patient HX: Rlq pain, tenderness TECHNIQUE: Imaging protocol: Computed tomography of the abdomen and pelvis with contrast. Radiation optimization: All CT scans at this facility use at least one of these dose optimization techniques: automated exposure control; mA and/or kV adjustment per patient size (includes targeted exams where dose is matched to clinical indication); or iterative reconstruction. Contrast material: OMNIPAQUE 350; Contrast volume: 100 ml; Contrast route: INTRAVENOUS (IV); COMPARISON: CT ABDOMEN PELVIS W 10/09/2021 22:21 FINDINGS: Lungs: Moderate in severity patchy centrilobular pattern opacities in both lower lobes and right middle lobe. Liver: Fatty liver with no mass lesions. Gallbladder and bile ducts: No calcified stones. No ductal dilation. Pancreas: No ductal dilation. No masses. Spleen: No splenomegaly or focal lesions. Adrenal glands: No mass. Kidneys and ureters: A right mid renal cyst may be minimally complicated, or there could be a tiny adjacent collecting system stone. No right hydronephrosis. No left hydronephrosis. Additional multiple benign and simple appearing renal cysts are present. Stomach and bowel: Submucosal fat deposition in the colon, likely habitus and or diet related. Appendix: Appendectomy Intraperitoneal space: No free air. No significant fluid collection. Vasculature: No abdominal aortic aneurysm. Lymph nodes: No significantly enlarged lymph nodes. Urinary bladder: Unremarkable as visualized. Reproductive: Unremarkable as visualized. Bones/joints: No acute fracture. Soft tissues: No suspicious lesions. IMPRESSION: 1. Moderate basilar pneumonia. 2. Incidental findings as described. Dictated and Authenticated by: Jennifer Valdivia MD. Ordering:IVETTE Delarosa MD
[2023-05-18] MEDS: risperiDONE 1 MG TAB 2 MG PO (20:55)
[2023-05-18] MEDS: Divalproex Sodium 250 MG TAB.ER.24H 1000 MG PO (21:11)
[2023-05-18] MEDS: cefTRIAXone 1 GM/50 ML BAG IVPB (22:19)
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
[2023-05-19] VITALS (17 sets, daily range): BP systolic 136–161; BP diastolic 78–97; PULSE 78–100; RESP 2–20; TEMP 35.7–36.6; O2SAT 92–97
[2023-05-19] MEDS: Divalproex Sodium 500 MG TAB.ER.24H 1000 MG PO ×2 (00:39→21:26)
[2023-05-19] MEDS: AZITHROMYCIN 500 MG in Normal Saline 250 ML 250 MG IVPB ×2 (00:39→21:17)
[2023-05-19] MEDS: risperiDONE 1 MG TAB 2 MG PO ×2 (00:39→21:27)
[2023-05-19] MEDS: Levothyroxine 100 MCG TAB PO (06:07)
[2023-05-19] MEDS: Dexamethasone 10 MG/ML VIAL 12 MG IVP (06:07)
[2023-05-19] MEDS: Empaglifozin 10 MG TAB PO (06:07)
[2023-05-19 06:49] LABS: HCT 43.2 % (40.0-50.0); HGB 14.1 g/dL (13.5-17.5); MCH 29.4 pg (27.0-33.0); MCHC 32.6 % (32.0-36.0); MCV 90 fL (80-95); MPV 10.8 fL (8.0-11.0); Platelet Count 215 10^3/uL (130-400); RBC 4.79 10^6/uL (4.36-5.78); RDW 13.2 % (11.8-14.1); RDW-SD 43.7 fL; WBC 14.11 10^3/uL (4.4-10.8)
[2023-05-19 06:51] LABS: Lactate 2.8 mmol/L (0.6-1.4)
[2023-05-19 07:01] LABS: BUN 13 mg/dL (7-18); CREATININE 0.9 mg/dL (0.70-1.30); Calcium 9.4 mg/dL (8.5-10.1); Chloride 104 mmol/L (98-107); Estimated GFR 109.36 (mL/min/1.73m2); Glucose 199 mg/dL (74-106); Potassium 4.3 mmol/L (3.5-5.1); Sodium 141 mmol/L (136-145)
[2023-05-19 07:21] LABS: Absolute Neutrophil Count 12.56 10^3/uL (1.2-6.7); Bands % 1
[2023-05-19 07:22] LABS: Absolute Lymphocyte Count 1.41 10^3/uL (1.2-3.4); Absolute Monocyte Count 0.14 10^3/uL (0.1-0.8); Atypical Lymphocytes % 5; Diff Comment Manual Differential; RBC Morphology Normal
[2023-05-19] MEDS: Pantoprazole 20 MG TABCR PO (08:23)
[2023-05-19] MEDS: Aspirin E.C. 81 MG TABEC PO (08:23)
[2023-05-19] MEDS: buPROPion-CR 100 MG TABCR 200 MG PO (08:23)
[2023-05-19] MEDS: Losartan 25 MG TAB PO (08:23)
[2023-05-19] MEDS: Insulin Aspart 300 UNITS/3 ML PEN SC ×3 (08:24→16:53)
[2023-05-19] MEDS: Enoxaparin 40 MG/0.4 ML SYR SC (08:24)
[2023-05-19] MEDS: Psyllium PKT 1 EACH PO (08:24)
[2023-05-19 10:08] LABS: Lactate 2.9 mmol/L (0.6-1.4)
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
--- NOTE | 2023-05-19 11:45 | W.PM.PROGNOT ---
Date of Service Date of service: 05/19/23 Time of Service: 11:45 Assessment and Plan Assessment and plan (1) Pneumonia: Status: Acute Assessment and plan: CT scan and presentation consistent with community acquired pneumonia. continue cefriaxone and azithromycin day 2/5, as he has no known risk factors or history of pseudomonas or MRSA. Given asthma, also treating with steroids, dexamethasone already ordered, will downstep to oral prednisone, also albuterol sputum culture added Qualifiers: Laterality: bilateral Lung location: lower lobe of lung (2) Sepsis: Status: Acute Assessment and plan: Patient met sepsis criteria on admission with elevated WBC, lactate, tachycardia, and fever. Fluid bolus given in ED. He has been improving, on antibiotics for pneumonia. will follow closely and continue IV fluids today and overnight. (3) Respiratory failure, acute: Status: Acute Assessment and plan: Hypoxic, Secondary to pneumonia as above, on nasal canula now and appears stable H/o chronic hypoxia overhight a/w FIDEL, try to get CPAP unit wean oxygen as able. (4) Type 2 diabetes mellitus with peripheral neuropathy: Status: Acute Assessment and plan: Holding metformin due to contast CT. Sugars likely to be high due to steroids as well. Given this, will start long acting insulin and ISS. Last A1c was 7.0 a month ago. (5) Bipolar disorder, unspecified: Status: Chronic Assessment and plan: Stable, continue outpatient medicaiton Qualifiers: Active/Remission status: remission status unspecified Qualified Code(s): F31.9 - Bipolar disorder, unspecified (6) Tobacco use disorder: Status: Chronic Assessment and plan: He would like to quit, using e-cigarrette now. Kenzie wants him to quit. Interested in nicotrol, but it looks like we can not longer get this. Can try lozynge. (7) Asthma: Status: Chronic Assessment and plan: Mildly active with this pneumonia. Dexamethasone started, transition to oral prednisone when improving Qualifiers: Asthma severity: mild Asthma persistence: intermittent Asthma complication type: uncomplicated Qualified Code(s): J45.20 - Mild intermittent asthma, uncomplicated (8) DVT prophylaxis: Status: Acute Assessment and plan: LMWH (9) Discharge planning issues: Status: Acute Assessment and plan: anticipate discharge to home with no services once medically stable discussed with Dr Pandey Subjective Subjective Patient reports: no new complaints, tolerating liquids well, tolerating a regular diet and afebrile Interval history since last seen: weaning oxygen, no fever, no new c/o Exam Const General: no acute distress Nutritional Appearance: obese Orientation: alert, awake and oriented x3 HENMT Head: normal to inspection and normocephalic Ears: external ears normal General nose exam: external nose normal Mouth: moist mucous membranes Eyes General: appearance normal, both eyes and all related structures Neck Neck: normal visual inspection Chest Chest: normal inspection of the chest Resp Effort & Inspection: normal respiratory effort and able to speak in complete sentences Auscultation: diminished lung sounds bilaterally in the lower lung cook, no rhonchi and no wheezes Cardio Rate: regular rate GI Palpation: tender Skin General skin exam: no rashes or lesions noted Neuro General: patient alert and patient oriented x3 Extrem General: normal to inspection Psych Mental Status: mental status grossly normal Objective Last Vital Signs Temp 36.0 C L 05/19/23 11:24 Pulse 96 H 05/19/23 11:24 Resp 18 05/19/23 11:24 BP 155/94 H 05/19/23 11:24 Pulse Ox 94 05/19/23 11:24 Laboratory Results - last 24 hr 05/18/23 05/18/23 05/18/23 15:30 15:40 18:45 WBC 13.53 H RBC 5.10 Hgb 14.9 Hct 45.3 MCV 89 MCH 29.2 MCHC 32.9 RDW 12.7 Plt Count 231 MPV 10.8 Immature Gran % 0.4 Neutrophils % 82.2 Band Neutrophils % Lymphocytes % 10.7 Atypical Lymphs % Monocytes % 5.8 Eosinophils % 0.7 Basophils % 0.2 Nucleated RBC % 0.0 Absolute Neutrophils 11.12 H Absolute Lymphocytes 1.45 Absolute Monocytes 0.78 Absolute Eosinophils 0.09 Absolute Basophils 0.03 RBC Morphology D-Dimer 238 VBG pH 7.40 VBG pCO2 48 VBG pO2 57 VBG HCO3 30 H VBG Total CO2 26 VBG O2 Saturation 90 VBG Base Excess 5 H VBG Lactate 2.6 H* 2.4 H* Sodium 141 Potassium 4.0 Chloride 102 Carbon Dioxide 28.8 Anion Gap 10.2 BUN 6 L Creatinine 0.9 Est GFR (CKD-EPI 2020) 109.36 Glucose 170 H Calcium 9.8 Total Bilirubin 0.4 AST 5 L ALT 19 Alkaline Phosphatase 67 Total Protein 7.8 Albumin 3.9 Procalcitonin < 0.1 Urine Color Urine Clarity Urine pH Ur Specific [place] Urine Protein Urine Ketones Urine Blood Urine Nitrite Urine Bilirubin Urine Urobilinogen Ur Leukocyte Esterase Urine Glucose COVID-19 Source Nasopharynx SARS-CoV-2 (PCR) Negative Influenza Type A (PCR) Negative Influenza Type B (PCR) Negative RSV (PCR) Negative 05/18/23 05/18/23 05/19/23 19:20 21:30 06:40 WBC 14.11 H RBC 4.79 Hgb 14.1 Hct 43.2 MCV 90 MCH 29.4 MCHC 32.6 RDW 13.2 Plt Count 215 MPV 10.8 Immature Gran % 0.0 Neutrophils % 88.0 Band Neutrophils % 1 Lymphocytes % 5.0 Atypical Lymphs % 5 Monocytes % 1.0 Eosinophils % 0.0 Basophils % 0.0 Nucleated RBC % 0.0 Absolute Neutrophils 12.56 H Absolute Lymphocytes 1.41 Absolute Monocytes 0.14 Absolute Eosinophils 0.00 Absolute Basophils 0.00 RBC Morphology Normal D-Dimer VBG pH VBG pCO2 VBG pO2 VBG HCO3 VBG Total CO2 VBG O2 Saturation VBG Base Excess VBG Lactate 2.0 H 2.8 H* Sodium 141 Potassium 4.3 Chloride 104 Carbon Dioxide 26.0 Anion Gap 11.0 BUN 13 Creatinine 0.9 Est GFR (CKD-EPI 2020) 109.36 Glucose 199 H Calcium 9.4 Total Bilirubin AST ALT Alkaline Phosphatase Total Protein Albumin Procalcitonin Urine Color Yellow Urine Clarity Clear Urine pH 6.5 Ur Specific [place] 1.010 Urine Protein Negative Urine Ketones Trace H Urine Blood Negative Urine Nitrite Negative Urine Bilirubin Negative Urine Urobilinogen 0.2 Ur Leukocyte Esterase Negative Urine Glucose 500 H COVID-19 Source SARS-CoV-2 (PCR) Influenza Type A (PCR) Influenza Type B (PCR) RSV (PCR) 05/19/23 10:04 WBC RBC Hgb Hct MCV MCH MCHC RDW Plt Count MPV Immature Gran % Neutrophils % Band Neutrophils % Lymphocytes % Atypical Lymphs % Monocytes % Eosinophils % Basophils % Nucleated RBC % Absolute Neutrophils Absolute Lymphocytes Absolute Monocytes Absolute Eosinophils Absolute Basophils RBC Morphology D-Dimer VBG pH VBG pCO2 VBG pO2 VBG HCO3 VBG Total CO2 VBG O2 Saturation VBG Base Excess VBG Lactate 2.9 H* Sodium Potassium Chloride Carbon Dioxide Anion Gap BUN Creatinine Est GFR (CKD-EPI 2020) Glucose Calcium Total Bilirubin AST ALT Alkaline Phosphatase Total Protein Albumin Procalcitonin Urine Color Urine Clarity Urine pH Ur Specific [place] Urine Protein Urine Ketones Urine Blood Urine Nitrite Urine Bilirubin Urine Urobilinogen Ur Leukocyte Esterase Urine Glucose COVID-19 Source SARS-CoV-2 (PCR) Influenza Type A (PCR) Influenza Type B (PCR) RSV (PCR) Time Spent with Patient Time Spent with Patient: 25-34 minutes Time was spent: preparing to see the patient(eg.review tests), ordering medications,tests, procedures, indepentently interpreting results and counseling the patient
--- NOTE | 2023-05-19 12:07 | RESPIRATORY ---
RT spoke with patient concerning history of FIDEL in his chart. Patient has done a sleep study and had a device at one point but the DME pick it up due to non-use and insurance refusing to pay for it.
[2023-05-19] MEDS: Albuterol/Ipratropium 3 ML UPD VIAL UPD ×3 (12:48→19:33)
[2023-05-19 13:20] LABS: Lactate 2.7 mmol/L (0.6-1.4)
[2023-05-19] MEDS: Acetaminophen 500 MG TAB 1000 MG PO (19:21)
[2023-05-19] MEDS: Normal Saline Flush 10 ML SYR IVP (20:17)
[2023-05-19] MEDS: cefTRIAXone 1 GM/50 ML BAG IVPB (20:18)
[2023-05-19] MEDS: guaiFENesin 600 MG TABCR PO (20:19)
[2023-05-19] MEDS: Magnesium Gluconate 500 MG TAB PO (20:19)
[2023-05-19] MEDS: Atorvastatin 20 MG TAB PO (20:21)
[2023-05-19] MEDS: Insulin Glargine 300 UNITS/3 ML PEN 20 UNITS SC (21:38)
[2023-05-20] VITALS (7 sets, daily range): BP systolic 131–132; BP diastolic 68–81; PULSE 82–117; RESP 2–20; TEMP 36.1–36.5; O2SAT 92–99
[2023-05-20] MEDS: Lactated Ringers 1,000 ML 150 ML IV (01:41)
[2023-05-20] MEDS: Levothyroxine 100 MCG TAB PO (05:22)
[2023-05-20 06:44] LABS: Lactate 1.7 mmol/L (0.6-1.4)
[2023-05-20 07:07] LABS: Abs Immature Grans 0.04 10^3/uL (0.0-0.06); Absolute Basophil Count 0.04 10^3/uL (0.0-0.2); Absolute Eosinophil Count 0.04 10^3/uL (0.0-0.7); Absolute Lymphocyte Count 3.06 10^3/uL (1.2-3.4); Absolute Monocyte Count 0.63 10^3/uL (0.1-0.8); Basophils % 0.3; Eosinophils % 0.3; HCT 38.9 % (40.0-50.0); HGB 12.9 g/dL (13.5-17.5); Immature Grans % 0.3; Lymphocytes % 25.7; MCH 29.9 pg (27.0-33.0); MCHC 33.2 % (32.0-36.0); MCV 90 fL (80-95); MPV 11.2 fL (8.0-11.0); Monocytes % 5.3; Neutrophils % 68.1; Platelet Count 211 10^3/uL (130-400); RBC 4.32 10^6/uL (4.36-5.78); RDW 13.3 % (11.8-14.1); RDW-SD 44.3 fL; WBC 11.89 10^3/uL (4.4-10.8)
[2023-05-20 07:28] LABS: Anion Gap 8.9 mmol/L (3-11); BUN 15 mg/dL (7-18); CO2 27.1 mmol/L (21.0-32.0); CREATININE 0.8 mg/dL (0.70-1.30); Calcium 9.4 mg/dL (8.5-10.1); Chloride 105 mmol/L (98-107); Estimated GFR 113.32 (mL/min/1.73m2); Glucose 118 mg/dL (74-106); Potassium 3.9 mmol/L (3.5-5.1); Sodium 141 mmol/L (136-145)
[2023-05-20] MEDS: Albuterol/Ipratropium 3 ML UPD VIAL UPD ×2 (09:12→12:19)
[2023-05-20] MEDS: Pantoprazole 20 MG TABCR PO (09:31)
[2023-05-20] MEDS: Empaglifozin 10 MG TAB PO (09:31)
[2023-05-20] MEDS: buPROPion-CR 100 MG TABCR 200 MG PO (09:31)
[2023-05-20] MEDS: Psyllium PKT 1 EACH PO (09:31)
[2023-05-20] MEDS: Losartan 25 MG TAB PO (09:31)
[2023-05-20] MEDS: guaiFENesin 600 MG TABCR PO (09:31)
[2023-05-20] MEDS: Aspirin E.C. 81 MG TABEC PO (09:31)
[2023-05-20] MEDS: Enoxaparin 40 MG/0.4 ML SYR SC (09:31)
[2023-05-20] MEDS: Ketoconazole 2% CREAM 15 GM TUBE TP (09:33)
[2023-05-20] MEDS: predniSONE 20 MG TAB 40 MG PO (11:54)
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
--- NOTE | 2023-05-20 13:33 | PDOC.CMDIS ---
Date of service: 05/20/23 Time of Service: 13:33 LACE Index Scoring Tool Questions: Length of Stay (in days): 2 Was the patient admitted via the E.D.?: Yes Comorbidities: Diabetes w/o Complication and Chronic Pulmonary Disease E.D. Visits: 1 Answers: Total Score: 9 Risk of Readmission: Low Risk Care Management Discharge Plan Reason for Hospitalization: sepsis/pneumonia Discharge Plan: Nick will be discharged home with no new services. He will follow up with his community providers and plan of care and transport with friends or family. Patient/Family Education Needs: Review of discharge instructions, limitations, follow up plan, discuss Ask Me Three
== END 2023-05-20 14:24 | disposition home or self-care (01) | DRG 871 ==
LOC: ER 21:25 → MS 22:09
PROVIDERS: Internal Medicine; Nurse Practitioner Acute Care; Admitting Provider Family Medicine; Emergency Provider Student in an Organized Health Care Education/Training Program; PCP Nurse Practitioner Adult Health; Visit Provider Family Medicine
DX: A41.9 Sepsis, unspecified organism (principal); J18.9 Pneumonia, unspecified organism; J96.01 Acute respiratory failure with hypoxia; Z68.41 Body mass index [BMI] 40.0-44.9, adult; E11.42 Type 2 diabetes mellitus with diabetic polyneuropathy; F31.9 Bipolar disorder, unspecified; J45.20 Mild intermittent asthma, uncomplicated; F17.210 Nicotine dependence, cigarettes, uncomplicated; E53.8 Deficiency of other specified B group vitamins; B35.1 Tinea unguium; I10 Essential (primary) hypertension; F79 Unspecified intellectual disabilities; K21.9 Gastro-esophageal reflux disease without esophagitis; M10.9 Gout, unspecified; E78.5 Hyperlipidemia, unspecified; E03.9 Hypothyroidism, unspecified; F43.10 Post-traumatic stress disorder, unspecified; G47.9 Sleep disorder, unspecified; E11.65 Type 2 diabetes mellitus with hyperglycemia; G47.62 Sleep related leg cramps; E73.9 Lactose intolerance, unspecified; M22.42 Chondromalacia patellae, left knee; M22.41 Chondromalacia patellae, right knee; K59.00 Constipation, unspecified; E66.9 Obesity, unspecified
CPT/HCPCS: 00123; 36415; 80048; 80053; 82805; 84145; 87040; 87426; 87637; 93005; 94618; 94640; 96365; 96367; 96375; 99285; J1650; 71046; 74177; 81003; 83605; 85025; 85379; 93010; 94667; 94668; 94760; 99233; 99238; J0131; J0456; J0696; J1100; J2020; J2543; J3490; J7512; J7620

== ENCOUNTER → 2023-05-29 13:00 | Outpatient (BNVA) | payer MEDICARE, MEDICAID, SELFPAY | PROVIDERS: PCP Nurse Practitioner Adult Health; Referring Provider Nurse Practitioner Adult Health; Visit Provider Podiatrist | DX: L60.0 Ingrowing nail (principal) | CPT/HCPCS: 99213 ==

== ENCOUNTER 2023-06-29 10:17 | Emergency (ER) | payer MEDICARE, MEDICAID, SELFPAY ==
[2023-06-29 10:21] VITALS: BP 161/108; PULSE 87; RESP 14; TEMP 36.2; O2SAT 96
--- NOTE | 2023-06-29 10:30 | DI.RAD_ITS ---
Exam(s) XR CHEST 2V PA LATERAL EXAM: XR CHEST 2V PA LATERAL CLINICAL HISTORY: cough TECHNIQUE: 2D digital imaging was performed of the chest. Two images were obtained. PA and lateral views were obtained. COMPARISON: CR,XR XR CHEST 2V PA LATERAL from 05/18/2023 FINDINGS: MEDIASTINUM: Normal. HEART: Normal. PULMONARY VASCULATURE: Normal. LUNGS: Clear. PLEURAL SPACE: No pleural effusion or pneumothorax. BONE:Within normal limits for the patient's age. There is an old left 5th rib fracture. OTHER FINDINGS:Normal. IMPRESSION: No acute pulmonary findings. DATA REPOSITORY: RADIATION DOSE DELIVERED:
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
[2023-06-29 10:40] VITALS: BP 160/90; PULSE 87; RESP 14; TEMP 36.2; O2SAT 96
[2023-06-29 10:42] VITALS: BP 160/90
--- NOTE | 2023-06-29 11:03 | DI.VRAD_ITS ---
PROCEDURE INFORMATION: Exam: XR Chest Exam date and time: 06/29/2023 10:54 AM Age: 42 years old Clinical indication: Cough TECHNIQUE: Imaging protocol: Radiologic exam of the chest. Views: 2 views. COMPARISON: CR XR CHEST 2V PA LATERAL 05/18/2023 5:56 PM FINDINGS: Lungs: Unremarkable. No consolidation. Pleural spaces: Unremarkable. No pleural effusion. No pneumothorax. Heart/Mediastinum: Unremarkable. No cardiomegaly. Bones/joints: Unremarkable. IMPRESSION: No acute findings. Dictated and Authenticated by: Jes Marte MD. Ordering:LAUREN Bolanos MD
[2023-06-29 11:28] LABS: COVID-19 PCR Negative (Negative); Influenza A PCR Negative (Negative); Influenza B PCR Negative (Negative); RSV PCR Negative (Negative)
[2023-06-29 11:29] LABS: Source Nasopharynx
== END 2023-06-29 11:45 | disposition home or self-care (01) ==
PROVIDERS: Emergency Provider Physician Assistant; PCP Nurse Practitioner Adult Health
DX: J06.9 Acute upper respiratory infection, unspecified (principal)
CPT/HCPCS: 87637; 99283; 71046; 99284

== ENCOUNTER → 2023-09-04 00:46 | Outpatient (CLI) | payer MEDICARE, MEDICAID, SELFPAY ==
--- NOTE | 2023-09-04 13:50 | DI.RAD_ITS ---
Exam(s) XR LUMBAR SPINE COMPLETE EXAM: XR LUMBAR SPINE COMPLETE CLINICAL HISTORY: assess bony alignment.low back pain, m54.50. TECHNIQUE: 2D digital imaging was performed of the lumbar spine. Five images were obtained. AP, la teral, right oblique, left oblique and L5-S1 spot views were obtained. COMPARISON: CR LUMBAR SPINE COMPLETE from 03/26/2016 FINDINGS: BONES: No fracture or destructive lesion. Vertebral bodies are unremarkable. No facet hypertrophy [place] ntified. DISKS: Intervertebral disc spaces are maintained. ALIGNMENT: Lumbar spinal alignment is within normal limits. No spondylolysis or spondylolisthesis. SOFT TISSUE: Normal. IMPRESSION: Unremarkable radiographs of the lumbar spine. DATA REPOSITORY: RADIATION DOSE DELIVERED:
== END ==
PROVIDERS: PCP Nurse Practitioner Adult Health; Visit Provider Nurse Practitioner Adult Health
DX: M54.50 Low back pain, unspecified (principal)
CPT/HCPCS: 72110

== ENCOUNTER 2023-11-26 15:05 | Outpatient (REF) | payer MEDICARE, MEDICAID, SELFPAY | END 2023-11-26 15:06 | disposition home or self-care (01) | LOC: LBN 15:05 | PROVIDERS: PCP Nurse Practitioner Adult Health; Visit Provider Physician Assistant Medical | DX: L03.019 Cellulitis of unspecified finger (principal); B96.89 Other specified bacterial agents as the cause of diseases classified elsewhere | CPT/HCPCS: 87077; 87070; 87186; 87205 ==

== ENCOUNTER 2024-04-20 03:04 | Outpatient (CLI) | payer MEDICARE, MEDICAID, SELFPAY ==
[2024-04-20 09:54] LABS: Hemoglobin A1C 6.9 % (<5.7)
[2024-04-20 10:36] LABS: Anion Gap 10.5 mmol/L (3-11); BUN 15 mg/dL (7-18); CO2 28.5 mmol/L (21.0-32.0); CREATININE 0.9 mg/dL (0.70-1.30); Calcium 9.6 mg/dL (8.5-10.1); Calculated LDL 84 mg/dL (<100); Chloride 106 mmol/L (98-107); Cholesterol 158 mg/dL (<200); Estimated GFR 108.68 (mL/min/1.73m2); Glucose 134 mg/dL (74-106); HDL Cholesterol 47 mg/dL (40-60); Magnesium 1.7 mg/dL (1.8-2.4); Potassium 4.5 mmol/L (3.5-5.1); Sodium 145 mmol/L (136-145); TSH (W/Ref FT4) 2.51 uIU/mL (0.36-3.74); Triglyceride 139 mg/dL (<150); Vitamin B12 589 pg/mL (193-986)
[2024-04-20 10:41] LABS: COMMENT (LAB VIEW ONLY) 60.04 mg/dL
[2024-04-20 10:44] LABS: Microalb ug/mg Crea 186.9 ug/mg Cr
== END 2024-04-20 03:05 | disposition home or self-care (01) ==
LOC: LBO 03:04
PROVIDERS: PCP Nurse Practitioner Adult Health; Visit Provider Nurse Practitioner Adult Health
DX: I10 Essential (primary) hypertension (principal); E78.5 Hyperlipidemia, unspecified; E03.9 Hypothyroidism, unspecified; E11.29 Type 2 diabetes mellitus with other diabetic kidney complication; R80.9 Proteinuria, unspecified; R79.89 Other specified abnormal findings of blood chemistry
CPT/HCPCS: 36415; 80048; 80061; 82043; 82570; 82607; 83036; 83735; 84443

== ENCOUNTER 2024-07-28 02:12 | Outpatient (CLI) | payer MEDICARE, MEDICAID, SELFPAY ==
--- NOTE | 2024-07-28 06:45 | DI.RAD_ITS ---
Exam(s) XR FOOT LT COMPLETE EXAM: XR FOOT LT COMPLETE CLINICAL HISTORY: Left heel pain,lt foot pain,m79.672,m79.673. TECHNIQUE: 2D digital imaging was performed. Three views. COMPARISON: CR RIGHT FOOT COMPLETE from 01/30/2017 FINDINGS: BONES: No acute fracture is present. No bony destructive lesion is seen. Small plantar calcaneal sp ur. JOINTS: No dislocation present. Plantar arch is maintained. SOFT TISSUE: Normal. IMPRESSION: Small plantar calcaneal spur. DATA REPOSITORY: RADIATION DOSE DELIVERED:
== END 2024-07-28 02:32 ==
LOC: DI 02:12
PROVIDERS: PCP Nurse Practitioner Adult Health; Visit Provider Podiatrist
DX: M79.672 Pain in left foot (principal); M72.2 Plantar fascial fibromatosis; E11.42 Type 2 diabetes mellitus with diabetic polyneuropathy; B35.1 Tinea unguium; E11.29 Type 2 diabetes mellitus with other diabetic kidney complication; R80.9 Proteinuria, unspecified; R20.2 Paresthesia of skin; L65.9 Nonscarring hair loss, unspecified; L60.3 Nail dystrophy; L60.2 Onychogryphosis; R23.8 Other skin changes; B35.3 Tinea pedis
CPT/HCPCS: 11721; 20550; J0702; J1100; 73630

== ENCOUNTER 2024-10-26 19:33 | Emergency (ER) | payer MEDICARE, MEDICAID, SELFPAY ==
[2024-10-26] VITALS (65 sets, daily range): BP systolic 138–154; BP diastolic 80–124; PULSE 85–107; RESP 13–25; TEMP 36.7–37; O2SAT 93–96
--- NOTE | 2024-10-26 19:30 | DI.CT_ITS ---
Exam(s) CT HEAD WO EXAM: CT HEAD WO CLINICAL HISTORY: altered mental status. TECHNIQUE: Imaging Protocol: Axial computed tomography images with coronal and sagittal reformatted images were created and reviewed COMPARISON: CT CT HEAD CERVICAL SPINE WO from 09/01/2022 FINDINGS: There are no skull fractures. There is no fluid in the visualized paranasal sinuses. There is no evidence of intracranial hemorrhage, mass effect, or shift of midline structures. There are no extra-axial fluid collections. The ventricles are not enlarged or shifted and there is no blo od within the ventricular system nor within the basal cisterns. IMPRESSION: No acute intracranial findings on this noninfused CT scan of the brain. RADIATION DOSE DELIVERED: 896.49mGy.cm Total DLP DATA REPOSITORY: All CT scans at this facility are submitted to the National Radiology Data Registry (NRDR) Dose Index Registry (DIR) with the [employer] (A[employer]). RADIATION OPTIMIZATION: All CT scans at this facility use at least one of these dose optimization te chniques: automated exposure control; mA and/or kV adjustment per patient size (includes targeted exa ms where dose is matched to clinical indication); or iterative reconstruction.
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
[2024-10-26 19:53] LABS: BE (Venous) 6 mmol/L (-2-3); HCO3 (Venous) 31 mmol/L (23-28); O2 Sat (Venous) 77 %; TCO2 (Venous) 27 mmol/L (24-29); pCO2 (Venous) 51 mmHg (41-51); pH (Venous) 7.39 (7.31-7.41); pO2 (Venous) 43 mmHg
[2024-10-26 19:54] LABS: Abs Immature Grans 0.02 10^3/uL (0.0-0.06); Absolute Basophil Count 0.04 10^3/uL (0.0-0.2); Absolute Eosinophil Count 0.12 10^3/uL (0.0-0.7); Absolute Monocyte Count 0.62 10^3/uL (0.1-0.8); Absolute Neutrophil Count 4.59 10^3/uL (1.2-6.7); Basophils % 0.4 %; Eosinophils % 1.3 %; HCT 43.5 % (40.0-50.0); HGB 14.4 g/dL (13.5-17.5); Immature Grans % 0.2 %; Lymphocytes % 40.7 %; MCH 29.9 pg (27.0-33.0); MCHC 33.1 % (32.0-36.0); MCV 90 fL (80-95); MPV 10.5 fL (8.0-11.0); Monocytes % 6.8 %; Neutrophils % 50.6 %; Platelet Count 284 10^3/uL (130-400); RBC 4.81 10^6/uL (4.36-5.78); RDW 12.6 % (11.8-14.1); RDW-SD 41.1 fL; WBC 9.09 10^3/uL (4.4-10.8)
[2024-10-26 20:03] LABS: Bilirubin Negative (Negative); Blood Negative (Negative); Clarity Clear (Clear); Glucose >=1000 mg/dL (Negative); Ketones Negative (Negative); Leukocyte Esterase Negative (Negative); Nitrite Negative (Negative); Specific Gravity 1.015 (1.005-1.025); Urobilinogen 0.2 mg/dL (Up to 0.2); pH 5.5 (5-8)
[2024-10-26 20:05] LABS: Ammonia < 10 umol/L (11-32)
[2024-10-26 20:14] LABS: Bacteria Negative HPF (Negative); C & S Indicated? No; Casts Negative LPF (Negative); Crystals Negative HPF (Negative); Epithelial Cells Rare HPF (Negative); Mucus Negative (Negative); RBC Negative HPF (0-2); WBC Negative HPF (0-5)
[2024-10-26 20:19] LABS: *AMPHETAMINES SCREEN URINE Negative (Negative); *BARBITURATES SCREEN URINE Negative (Negative); *BENZODIAZEPINES SCREEN URINE Negative (Negative); Cannabinoids THC Negative (Negative); Cocaine Screen,Urine Negative (Negative); METHADONE URINE SCREEN Negative (Negative); OPIATES URINE SCREEN Negative (Negative)
[2024-10-26 20:22] LABS: Tricyclic Antidepressants Negative (Negative)
[2024-10-26 20:25] LABS: ALT 24 U/L (16-63); AST 5 U/L (15-37); Albumin 3.8 g/dL (3.4-5.0); Alkaline Phosphatase 73 U/L (46-116); Anion Gap 8.5 mmol/L (3-11); BUN 11 mg/dL (7-18); Bilirubin, Direct 0.1 mg/dL (0.0-0.2); Bilirubin, Total 0.3 mg/dL (0.2-1.0); CO2 30.5 mmol/L (21.0-32.0); Calcium 9.7 mg/dL (8.5-10.1); Chloride 102 mmol/L (98-107); Estimated GFR 95.18 (mL/min/1.73m2); Glucose 161 mg/dL (74-106); Magnesium 1.6 mg/dL (1.8-2.4); Potassium 3.8 mmol/L (3.5-5.1); Sodium 141 mmol/L (136-145); TSH (W/Ref FT4) 3.95 uIU/mL (0.36-3.74); Total Protein 7.4 g/dL (6.4-8.2)
[2024-10-26 20:28] LABS: Procalcitonin < 0.10 ng/mL
[2024-10-26 20:29] LABS: VALPROIC ACID 16.8 ug/mL
[2024-10-26 20:30] LABS: Acetaminophen < 2 ug/mL (10-30)
[2024-10-26 20:38] LABS: ETHANOL BLOOD < 3.0 mg/dL (<10)
--- NOTE | 2024-10-26 21:10 | DI.VRAD_ITS ---
PROCEDURE INFORMATION: Exam: CT Head Without Contrast Exam date and time: 10/26/2024 8:15 PM Age: 44 years old Clinical indication: Other: Altered mental status TECHNIQUE: Imaging protocol: Computed tomography of the head without contrast. COMPARISON: CT HEAD CERVICAL SPINE WO 09/01/2022 8:31 PM FINDINGS: Brain: Cerebral sulci show bilateral symmetry with no supratentorial mass or mass effect detected. Brainstem and cerebellum are unremarkable. There is no evidence of acute transcortical infarction or recent intracranial hemorrhage. Cerebral ventricles: Ventricular and cisternal spaces are normal in size and configuration and there is no midline shift or hydrocephalus seen. Paranasal sinuses: Grossly clear throughout. Mastoid air cells: Grossly clear bilaterally. Probable cerumen seen in the left external auditory canal. Bones: Bony calvarium and skull base are intact and no acute fractures are detected. Soft tissues: Unremarkable. IMPRESSION: No evidence of acute transcortical infarction, recent intracranial hemorrhage or hydrocephalus. No acute intracranial process is detected. Dictated and Authenticated by: Escobar Ibrahim MD. Orderin Shalom Castro MD
== END 2024-10-26 21:28 | disposition home or self-care (01) ==
LOC: ER 22:19
PROVIDERS: Emergency Provider Emergency Medicine; PCP Nurse Practitioner Adult Health
DX: R40.4 Transient alteration of awareness (principal); E11.40 Type 2 diabetes mellitus with diabetic neuropathy, unspecified; I10 Essential (primary) hypertension; Z79.82 Long term (current) use of aspirin; Z79.84 Long term (current) use of oral hypoglycemic drugs; Z79.85 Long-term (current) use of injectable non-insulin antidiabetic drugs; Z87.891 Personal history of nicotine dependence
CPT/HCPCS: 80053; 80307; 82805; 82962; 84145; 99284; 70450; 80164; 80320; 80329; 81003; 81015; 82140; 82248; 83735; 84439; 84443; 85025

== ENCOUNTER 2024-11-12 13:07 | Outpatient (CLI) | payer MEDICARE, SELFPAY ==
--- NOTE | 2024-11-12 13:00 | RT.EKG_ITS ---
APPROVED REPORT Exam: Resting ECG Reason for Exam: intermittent exertional chest pain Patient Location: O HR:79 bpm ECG Measurements Heart Rate 79 AXIS CO 158 P 31 QRSd 111 QRS 46 QT 380 T 17 QTc 436 Conclusion Sinus rhythm...normal P axis, V-rate 50- 99 Normal Electrocardiogram
== END 2024-11-12 13:08 | disposition home or self-care (01) ==
PROVIDERS: PCP Nurse Practitioner Adult Health; Visit Provider Family Medicine
DX: R07.9 Chest pain, unspecified (principal); E78.5 Hyperlipidemia, unspecified; I10 Essential (primary) hypertension; Z87.891 Personal history of nicotine dependence; E11.29 Type 2 diabetes mellitus with other diabetic kidney complication; R80.9 Proteinuria, unspecified; E11.42 Type 2 diabetes mellitus with diabetic polyneuropathy; E03.9 Hypothyroidism, unspecified; F89 Unspecified disorder of psychological development; G47.33 Obstructive sleep apnea (adult) (pediatric); E66.9 Obesity, unspecified
CPT/HCPCS: 93010

== ENCOUNTER → 2024-11-25 09:18 | Outpatient (BNVA) | payer MEDICARE, SELFPAY | PROVIDERS: PCP Nurse Practitioner Adult Health; Referring Provider Nurse Practitioner Adult Health; Visit Provider Podiatrist | DX: M72.2 Plantar fascial fibromatosis (principal); E11.42 Type 2 diabetes mellitus with diabetic polyneuropathy; B35.1 Tinea unguium; E11.29 Type 2 diabetes mellitus with other diabetic kidney complication; R80.9 Proteinuria, unspecified; M79.672 Pain in left foot; L60.3 Nail dystrophy; L65.9 Nonscarring hair loss, unspecified; R09.89 Other specified symptoms and signs involving the circulatory and respiratory systems; L60.2 Onychogryphosis; B35.3 Tinea pedis | CPT/HCPCS: 11721; 99213 ==

== ENCOUNTER 2025-02-04 00:21 | Outpatient (CLI) | payer MEDICARE, SELFPAY ==
--- NOTE | 2025-02-04 07:00 | DI.MRI_ITS ---
Exam(s) MR UPPER JOINT RT WO EXAM: MR UPPER JOINT RT WO CLINICAL HISTORY: chronic rt shoulder pain,m25.511,g89.29. TECHNIQUE: Multiplanar multisequence MRI was performed. COMPARISON: None. FINDINGS: BONES: There is no fracture or contusion pattern. JOINTS:The acromioclavicular joint is normal. The glenohumeral joint is normal. TENDONS: Supraspinatus: Unremarkable. Infraspinatus: Unremarkable. Subscapularis: Unremarkable. Teres Minor: Unremarkable. Biceps and [place]: Unremarkable. MUSCLES: Unremarkable. GLENOID LABRUM: Unremarkable on this noncontrast examination. SOFT TISSUES: Unremarkable. BURSAE: Subacromial and subdeltoid bursae shows trace fluid. Trace fluid in subcoracoid bursa.. IMPRESSION: Unremarkable MRI of the shoulder. DATA REPOSITORY:
== END 2025-02-04 00:41 ==
LOC: DI 00:22
PROVIDERS: PCP Family Medicine; Visit Provider Family Medicine
DX: M25.511 Pain in right shoulder (principal); G89.29 Other chronic pain
CPT/HCPCS: 73221

== ENCOUNTER → 2025-02-15 14:04 | Outpatient (BNVA) | payer MEDICARE, SELFPAY | PROVIDERS: PCP Family Medicine; Referring Provider Family Medicine; Visit Provider Student in an Organized Health Care Education/Training Program | DX: M25.511 Pain in right shoulder (principal); M75.51 Bursitis of right shoulder; M94.211 Chondromalacia, right shoulder | CPT/HCPCS: 99213 ==

== ENCOUNTER → 2025-06-06 13:19 | Outpatient (CLI) | payer MEDICARE, SELFPAY ==
--- NOTE | 2025-06-06 12:15 | DI.RAD_ITS ---
Exam(s) XR FOOT RT COMPLETE EXAM: XR FOOT RT COMPLETE CLINICAL HISTORY: [id number] Foot Trauma, Patient dropped a lid on his foot. TECHNIQUE: 2D digital imaging was performed of the right foot. Three images were obtained. AP, oblique and lateral views were obtained. COMPARISON: CR RIGHT FOOT COMPLETE from 01/30/2017 FINDINGS: BONES: There is a lucency through the cortex at the base of the distal phalanx which is present on the prior examination from 2017. No definite fracture or dislocation is identified at this time.. No bony destructive lesion is seen. JOINTS: No dislocation present. SOFT TISSUE: There is soft tissue swelling of the great toe. IMPRESSION: No definite acute fracture or dislocation. If symptoms persist, a repeat examination in 7-10 days may be obtained for re-evaluation. DATA REPOSITORY: RADIATION DOSE DELIVERED:
== END ==
LOC: DI 13:19
PROVIDERS: PCP Family Medicine; Visit Provider Family Medicine
DX: S99.921A Unspecified injury of right foot, initial encounter (principal); X58.XXXA Exposure to other specified factors, initial encounter
CPT/HCPCS: 73630

== ENCOUNTER 2025-07-10 13:42 | Emergency (ER) | payer MEDICARE, SELFPAY ==
[2025-07-10 13:50] VITALS: BP 156/96; PULSE 89; RESP 18; TEMP 36.7; O2SAT 94
[2025-07-10 13:57] VITALS: BP 156/96; PULSE 89; RESP 18; TEMP 36.7; O2SAT 94
[2025-07-10 14:56] LABS: COVID-19 PCR Negative (Negative); RSV PCR Negative (Negative)
[2025-07-10 15:50] VITALS: BP 153/94; PULSE 76; RESP 20; TEMP 36.6; O2SAT 98
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
[2025-07-10] MEDS: Albuterol HFA 8 GM 60 PUFF INH IH (16:14)
[2025-07-10] MEDS: Oseltamivir 75 MG CAP PO (16:15)
== END 2025-07-10 16:25 | disposition home or self-care (01) ==
PROVIDERS: Emergency Medicine; Emergency Provider Physician Assistant; PCP Family Medicine
DX: J10.1 Influenza due to other identified influenza virus with other respiratory manifestations (principal)
CPT/HCPCS: 99283 ×2; 87637